=== PATIENT | male | born 1970 | race Caucasian/White ===

== ENCOUNTER 2017-08-21 09:03 | Emergency (ER) | payer MEDICAID, SELFPAY ==
[2017-08-21 09:04] VITALS: BP 130/75; PULSE 73; RESP 15; TEMP 36.6; O2SAT 100; BMI 17.9
--- NOTE | 2017-08-21 09:21 | RAD_ITS ---
STUDY: X-RAY - LUMBAR SPINE REASON FOR EXAM: Male, 46 years old. back pain NKI. TECHNIQUE: 3 view(s) of the lumbar spine were obtained. COMPARISON: None FINDINGS: Normal lumbar lordosis. There is no substantial scoliosis. There is a normal alignment of the vertebrae. There is minimal multilevel endplate spondylosis of the lumbar vertebrae. Normal disc space heights. The soft tissue structures are unremarkable. RAD/Lumbar Spine 2 or 3 Views IMPRESSION: No acute fracture or dislocation Electronically Signed: Dia Lujan MD at 9:57 EDT Tel , Service support ,
--- NOTE | 2017-08-21 09:28 | ED.VISSUMM ---
- ER Visit Summary Date of Service: 08/21/17 Chief Complaint: [Back pain] History of Present Illness: The patient is a 46 M [who presents the emergency department with low back pain. He feels like he cannot stand up straight. He has constant numbness and tingling in his upper extremities and feet that has been going on for a year or longer but nothing new. Urination and bowel movements have been normal. He is able to ambulate but it is painful and he cannot stand up straight he denies any weakness. No fevers. No new injuries. Is been gradual over the last 3 weeks. He he is on Plaquenil and Mobic for rheumatoid arthritis and sees a outreach clinician. He follows with Dr. Diaz and Dr.I elder Physical Examination: [] WN WD NAD thin PERRL EOMI MMM NECK supple and nontender, no masses RRR no murmur rub or gallop, no peripheral edema, symmetric radial pulses CTAB no respiratory distress ABDOMEN is soft and nontender, normal bowel sounds, no distension, no rebound or guarding Patient has mild tenderness of paper palpation at L5-S1 in the midline some mild tenderness over the right SI joint. He has 5 out of 5 strength with EHL 4 out of 5 strength with dorsiflexion and plantar flexion bilaterally 5 out of 5 strength with knee extension and hip flexion. There is no sensory deficits. He has 1+ symmetric DP pulses and 1+ symmetric patellar reflexes bilaterally. There is no skin changes distally. SKIN is warm and dry no rashes Alert and Oriented x3, CN II-XII in tact, patient walks slightly bent forward No lymphadenopathy Test Results: [] Emergency Department Course and Treatment: [He was given morphine and Flexeril in the emergency department. X-rays of the lumbar spine were obtained. X-ray show mild arthritis but no other acute process. I am concerned about canal stenosis given the patient's history. I do not think he needs an emergent MRI at this time however I did precaution him about follow-up with either his outreach clinician or primary doctor for further outpatient testing. I will add Medrol to his Plaquenil as well as Flexeril and pork Percocet. Oarrs report was reviewed. Careful instructions for which she should return to the emergency department.] Treatment Plan: [] Disposition: [Discharge] Impression: [Lumbar back pain] This note was generated with Dragon dictation software. It may contain incorrect words, spelling, and punctuation that were not noted in review of the chart prior to signing ED Disposition - Plan for ED Patient: Chief Complaint: Back Referrals: Care Physician,No Primary [Primary Care Provider] -
[2017-08-21] MEDS: morphine 8 MG/ML Syringe 6 MG SC (09:30)
--- NOTE | 2017-08-21 09:31 | ED.DCSUM_ITS ---
- ER Visit Summary Date of Service: 08/21/17 Chief Complaint: [Back pain] History of Present Illness: The patient is a 46 M [who presents the emergency department with low back pain. He feels like he cannot stand up straight. He has constant numbness and tingling in his upper extremities and feet that has been going on for a year or longer but nothing new. Urination and bowel movements have been normal. He is able to ambulate but it is painful and he cannot stand up straight he denies any weakness. No fevers. No new injuries. Is been gradual over the last 3 weeks. 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 He follows with Dr. Diaz and Dr.I elder Physical Examination: [] WN WD NAD thin PERRL EOMI MMM NECK supple and nontender, no masses RRR no murmur rub or gallop, no peripheral edema, symmetric radial pulses CTAB no respiratory distress ABDOMEN is soft and nontender, normal bowel sounds, no distension, no rebound or guarding Patient has mild tenderness of paper palpation at L5-S1 in the midline some mild tenderness over the right SI joint. He has 5 out of 5 strength with EHL 4 out of 5 strength with dorsiflexion and plantar flexion bilaterally 5 out of 5 strength with knee extension and hip flexion. There is no sensory deficits. He has 1+ symmetric DP pulses and 1+ symmetric patellar reflexes bilaterally. There is no skin changes distally. SKIN is warm and dry no rashes Alert and Oriented x3, CN II-XII in tact, patient walks slightly bent forward No lymphadenopathy Test Results: [] Emergency Department Course and Treatment: [He was given morphine and Flexeril in the emergency department. X-rays of the lumbar spine were obtained. X-ray show mild arthritis but no other acute process. I am concerned about canal stenosis given the patient's history. I do not think he needs an emergent MRI at this time however I did precaution him about follow-up with either his clock repair technician or primary doctor for further outpatient testing. I will add Medrol to his Plaquenil as well as Flexeril and pork Percocet. Oarrs report was reviewed. Careful instructions for which she should return to the emergency department.] Treatment Plan: [] Disposition: [Discharge] Impression: [Lumbar back pain] This note was generated with Dragon dictation software. It may contain incorrect words, spelling, and punctuation that were not noted in review of the chart prior to signing ED Disposition - Plan for ED Patient: Chief Complaint: Back Referrals: Care Physician,No Primary [Primary Care Provider] -
--- NOTE | 2017-08-21 10:33 | ED.DEP ---
ED Disposition - Plan for ED Patient: Chief Complaint: Back Instructions: ED Neck Back Pain General Prescriptions: Oxycodone HCl/Acetaminophen [Percocet 5/325] 1 tablet PO Q6H PRN PRN 3 Days #12 tablet PRN Reason: Pain MethylPREDNISolone DosePak [Medrol DosePak] 4 mg PO UD #1 box Cyclobenzaprine [Flexeril] 10 mg PO TID PRN 3 Days #14 tablet PRN Reason: Muscle Spasm Referrals: Albert Diaz NP-C [NON-STAFF] - 08/23/17
== END 2017-08-21 10:54 | disposition home or self-care (01) ==
PROVIDERS: Emergency Provider Emergency Medicine
DX: M54.9 Dorsalgia, unspecified (principal); M54.5 Low back pain; M06.9 Rheumatoid arthritis, unspecified; Z79.1 Long term (current) use of non-steroidal anti-inflammatories (NSAID)
CPT/HCPCS: 72100; 96372; 99282

== ENCOUNTER 2017-12-28 07:49 | Emergency (ER) | payer SELFPAY ==
[2017-12-28 07:50] VITALS: BP 116/74; PULSE 89; RESP 16; TEMP 36.6; O2SAT 99; BMI 18.2
--- NOTE | 2017-12-28 08:07 | CT_ITS ---
STUDY: CT ABDOMEN AND PELVIS WITH CONTRAST REASON FOR EXAM: Male, 47 years old. PELVIC PAIN /N/V SINCE Saturday12/26/17. Hx of diverticulitis. No prev surgeries. RADIATION DOSAGE (If Supplied By Facility): CTDIvol = ( 11.52 ) mGy, DLP = ( 307.82 ) mGycm TECHNIQUE: Transaxial images were obtained from the dome of the diaphragm to the symphysis pubis without oral contrast. 100ml ml of Isovue 300 contrast was administered. Sagittal and coronal images were reconstructed. Individualized dose optimization techniques were used for this CT. COMPARISON: None. FINDINGS: The visualized lung bases are unremarkable. The visualized portions of the heart are within normal limits. Normal liver. Normal gallbladder and extrahepatic biliary system. Normal spleen. Normal pancreas. Normal bilateral adrenal glands. Normal right kidney. Normal left kidney. Normal visualized stomach. Normal small intestine. There is diffuse circumferential thickening of the cecum (axial image #88 series 2 there is subtle pericolonic infiltration. There are no fluid collections are perforation. There is non-visualization of the appendix. There is diffuse atherosclerotic calcification of the abdominal aorta, without a demonstrated aneurysm. Normal inferior vena cava. Normal retroperitoneum. Normal urinary bladder. Normal abdominal wall. Normal osseous structures. CT/Abdomen/Pelvis WITH Contrast IMPRESSION: Thickening of the sigmoid. Differential considerations are infectious, inflammatory and neoplastic disease. Electronically Signed: Dia Lujan MD at 10:34 EDT Tel , Service support ,
[2017-12-28] MEDS: 0.9% Normal Saline 1,000 ML 1000 ML IV (08:11)
--- NOTE | 2017-12-28 08:11 | ED.DCSUM_ITS ---
- ER Visit Summary Date of Service: 12/28/17 Chief Complaint: Abdominal pain History of Present Illness: The patient is a 47 M presenting with left lower quadrant abdominal pain ?3 days. Patient has associated nausea and vomiting. He denies diarrhea or constipation. Denies blood in his stool or emesis. Denies urinary complaints. He has had diverticulitis in the past and states this feels similar. Denies other complaints. Physical Examination: Vitals are stable. Patient is afebrile. Alert no acute distress. HEENT exam is unremarkable. Neck is supple. Lungs are clear and equal bilaterally. Heart is regular rate and rhythm. Abdomen is soft left lower quadrant and suprapubic tenderness, no rebound or guarding Extremities are unremarkable. Skin is warm and dry. Remainder of exam is unremarkable. Emergency Department Course and Treatment: Patient was given IV fluids, morphine , Zofran IV. CBC shows a white count of 14.6. Chemistries show glucose 169. Liver lipase are normal. CT abdomen pelvis with IV and oral contrast was obtained and shows thickening of the cecum. Discussed with the radiologist who feels this is likely diverticulitis. He is given Augmentin and a prescription for Augmentin. He is advised to follow-up with his primary care physician. Advised return to the ED for worsening complaints. Disposition: Discharge home Impression: Abdominal pain This note was generated with [employer] dictation software. It may contain incorrect words, spelling, and punctuation that were not noted in review of the chart prior to signing ED Disposition - Plan for ED Patient: Chief Complaint: Abd Pain Referrals: Albert James MD [Primary Care Provider] -
[2017-12-28] MEDS: Ondansetron 4 MG/2 ML Vial IV (08:15)
[2017-12-28] MEDS: Morphine 4 MG/ML Syringe IV (08:15)
[2017-12-28 08:30] LABS: Absolute Lymphocyte Count 1.25 X10^3/ul (0.83-4.51); Absolute Neutrophil Count 11.6 X10^3/uL (2.0-7.7); Basophil# 0.01 X10^3/uL; Basophil% 0.1 % (0-1); Eosinophil# 0.08 X10^3/uL; Eosinophils% 0.5 % (0-5); Hematocrit 43.2 % (40-54); Hemoglobin 14.4 g/dl (13.0-16.5); Lymphocyte # 1.25 X10^3/ul (4.0); Lymphocyte % 8.6 % (19-41); Mean Corp Hgb Conc 33.3 g/gl (32-36); Mean Corpuscular Hgb 31.4 pg (27.0-32.0); Mean Corpuscular Volume 94.3 fL (80-94); Mean Platelet Vol. 9.7 fl (6.2-12.0); Monocyte# 1.65 X10^3/uL; Monocyte% 11.3 % (0-10); Neutrophil # 11.56 X10^3/uL (2.7-7.7); Neutrophil % 79.3 % (47-70); Platelet Count 166 K/mm3 (150-450); RBC Distribution Width CV 14.7 % (11.6-14.6); RBC Distribution Width SD 50.7 fl (35.1-43.9); Red Blood Count 4.58 M/mm3 (4.6-6.2); White Blood Count 14.6 K/mm3 (4.4-11.0)
[2017-12-28 08:35] LABS: Differential Indicated SCAN CRITERIA MET; POSITIVE COUNT NO; POSITIVE DIFFERENTIAL YES; POSITIVE MORPHOLOGY NO
[2017-12-28 08:40] LABS: ALB/GLOB Ratio 1.1 RATIO (0.9-2.4); AST(SGOT) 12 U/L (15-37); Alanine Aminotransfer ALT/SGPT 25 U/L (16-61); Albumin, Serum 3.7 g/dL (3.2-5.0); Alkaline Phosphatase 76 U/L (45-117); Anion Gap 8 (5-15); BUN 18 mg/dL (7-18); BUN/Creat Ratio 18.9 RATIO (10-20); Calcium,Total 9.1 mg/dL (8.5-10.1); Chloride 101 mmol/L (98-107); Creatinine, Serum 0.95 mg/dL (0.70-1.30); EST Glomerular Filtration Rate 90 mL/min (>60); Est Glom Filt Rate - Afr Amer 108 mL/min (>60); Estimated Creatinine Clearance 74.64 ml/min; Globulin 3.3 g/dL (2.2-4.2); Glucose 169 mg/dL (74-106); Lipase 89 U/L (73-393); Potassium 4.3 mmol/L (3.5-5.1); Sodium Level 138 mmol/L (136-145)
[2017-12-28 09:39] LABS: Bacteria 0 SEEN /hpf (None Seen); Mucous, Urine 0 SEEN /hpf (<or=2+); Red Blood Cells-Urine 0 SEEN /hpf (0-5); Squamous Epithelial Cells - UA 0 SEEN /hpf (0-5); White Blood Cells 0 SEEN /hpf (0-5)
[2017-12-28 09:43] LABS: Color, Urine Yellow (Yellow); Glucose, Dipstick 50 mg/dl (Normal); Ketone-Dipstick Negative (Negative); Leukocyte Esterase-Dipstick Negative /ul (Negative); Nitrite-Dipstick Negative (Negative); Occult Blood-Urine Negative /ul (Negative); Protein-Dipstick Negative (Negative); Urine Bilirubin Dipstick Negative (Negative); Urine Clarity Clear (Clear); Urine Urobilinogen Normal (Normal); Urine pH 6.5 (5.0 - 8.0)
[2017-12-28] MEDS: Amox/Clavulanate 875 MG Tablet PO (11:44)
[2017-12-28 11:46] VITALS: BP 133/68; PULSE 72; RESP 15; O2SAT 96
== END 2017-12-28 11:48 | disposition home or self-care (01) ==
PROVIDERS: Emergency Provider Emergency Medicine
DX: R10.32 Left lower quadrant pain (principal); R10.2 Pelvic and perineal pain; M19.90 Unspecified osteoarthritis, unspecified site; Z72.0 Tobacco use; Z79.899 Other long term (current) drug therapy
CPT/HCPCS: 74177; 80053; 81001; 83690; 85025; 96361; 96374; 96375; 99284; J7030; Q9967; J2405

== ENCOUNTER 2018-09-22 17:33 | Emergency (ER) | payer SELFPAY ==
[2018-09-22 17:33] VITALS: BP 102/69; PULSE 75; RESP 17; TEMP 36.4; O2SAT 100; BMI 18.6
--- NOTE | 2018-09-22 18:42 | ED.VIS.EYE ---
History of Present Illness Chief Complaint: Eye Problem Narrative: Patient presenting secondary to foreign body in the left eye. Patient reports that yesterday he was cutting the muffler off of his car. He reports that when he cut it a large amount of rust and dust and material went into the air, and he felt as if he got something in his left eye. He reports a continuous left eye foreign body sensation. No exacerbating relieving factors. No visual changes. View of systems otherwise negative. Past Medical History - Allergies and Home Meds Allergies/Adverse Reactions: Allergies No Known Allergies Allergy (Verified 09/22/18 17:33) Primary Care Physician: Dionte Pritchett MD [STAFF PHYSICIAN] - As soon as possible Smoking Status: Current every day smoker Review of Systems All systems negative except as indicated Eyes: Reports: - - Foreign body sensation left eye Physical Exam Visual Acuity: Uncorrected Eyelid: - - Examination of the patient's left eye shows injection of the conjunctive a. There is no evidence of foreign body on eversion of the eyelids. Slit-lamp exam demonstrates a metallic foreign body at approximately the 2:00 portion of the patient's eye with associated rust ring. Fluorescein staining shows no evidence of Eliazar sign. Anterior chambers deep and quiet. Vital Signs/Narrative: Vital Signs Temp Pulse Resp BP Pulse Ox 09/22/18 17:33 97.5 F L 75 17 102/69 100 Inital Vital Signs reviewed: Yes General: Well nourished, Well developed Head: Normocephalic, Atraumatic Cardiovascular: Regular rate Respiratory: No distress Diagnostic/Tx/Re-eval - Medical Decision Making Patient presented secondary to a corneal foreign body. No evidence of globe rupture. Much of the foreign bodies I could remove with the eye bur was performed as noted in the procedure note. There is still residual rust ring, patient was given a referral to ophthalmology. Patient will be discharged with bacitracin ophthalmic. Procedures Procedure(s): Patient's eye was anesthetized with tetracaine. Patient was placed in front of the slit-lamp. Rotary eye bur was used to remove the patient's corneal foreign body. Patient tolerated this well. There is still residual rust ring. Disposition: Home ED Disposition - Plan for ED Patient: Disposition: Home or Assisted Living Diagnosis: Corneal foreign body, Corneal rust ring of left eye Instructions: ED Foreign Body Cornea W Rust Ring Referrals: Dionte Pritchett MD [STAFF PHYSICIAN] - As soon as possible
[2018-09-22 18:58] VITALS: BP 103/72; PULSE 63; RESP 17; O2SAT 100
== END 2018-09-22 19:02 | disposition home or self-care (01) ==
PROVIDERS: Emergency Provider Emergency Medicine
DX: T15.02XA Foreign body in cornea, left eye, initial encounter (principal); F17.200 Nicotine dependence, unspecified, uncomplicated; X58.XXXA Exposure to other specified factors, initial encounter; Y93.9 Activity, unspecified; Y92.009 Unspecified place in unspecified non-institutional (private) residence as the place of occurrence of the external cause; Y99.8 Other external cause status
CPT/HCPCS: 65222; 99283

== ENCOUNTER 2021-12-19 08:01 | Emergency (ER) | payer MEDICAID, SELFPAY ==
[2021-12-19 08:02] VITALS: BP 113/78; PULSE 60; RESP 14; TEMP 36.8; O2SAT 100; BMI 18.4
--- NOTE | 2021-12-19 08:11 | CT_ITS ---
STUDY: CT ABDOMEN AND PELVIS WITHOUT CONTRAST REASON FOR EXAM: Male, 51 years old. Back pain and abdominal pain. RADIATION DOSAGE (If Supplied By Facility): CTDIvol = ( 6.04 ) mGy, DLP = ( 797.39 ) mGycm TECHNIQUE: Transaxial images were obtained from the dome of the diaphragm to the symphysis pubis without oral contrast, and without intravenous contrast. Sagittal and coronal images were reconstructed. Individualized dose optimization techniques were used for this CT. COMPARISON: Comparison is made with prior examination dated 12/28/2017. FINDINGS: The visualized lung bases are unremarkable. The visualized portions of the heart are within normal limits. There is hepatomegaly with diffuse hepatic enlargement. Normal gallbladder and extrahepatic biliary system. Normal spleen. Normal pancreas. Normal bilateral adrenal glands. Normal right kidney. Normal left kidney. Normal visualized stomach. Normal small intestine. There are multiple colonic diverticula consistent with diverticulosis. The appendix is visualized and appears normal. There is scattered atherosclerotic calcification of the abdominal aorta, without a demonstrated aneurysm. Normal inferior vena cava. Normal retroperitoneum. Normal urinary bladder. There are prostatic calcifications. Normal abdominal wall. Normal osseous structures. CT/Abdomen/Pelvis without Cont IMPRESSION: Sigmoid diverticulosis. Central prostatic calcifications. Mild hepatomegaly. Electronically Signed: Azam James MD at 8:57 EDT ,
--- NOTE | 2021-12-19 08:11 | CT_ITS ---
STUDY: CT LUMBAR SPINE WITHOUT CONTRAST REASON FOR EXAM: Male, 51 years old. Two-month history of low back pain. No known injury. RADIATION DOSAGE (If Supplied By Facility): CTDIvol = ( 13.82 ) mGy, DLP = ( 797.39 ) mGycm TECHNIQUE: The patient was scanned in a multi detector CT scanner. High resolution transaxial imaging was performed. Images were obtained from L1 to S1 vertebral body. Sagittal and coronal images were reconstructed. Individualized dose optimization techniques were used for this CT. COMPARISON: None FINDINGS: Normal lumbar lordosis. There is no substantial scoliosis. Normal vertebrae of the lumbar spine. L1-2: Normal endplates. Normal disc height and morphology. Normal bilateral facet joints. Normal central canal and bilateral lateral recesses. Normal bilateral intervertebral neural foramina. L2-3: Mild degree of diffuse posterior disc bulge. No significant stenosis is seen. L3-4: Normal endplates. Normal disc height and morphology. Normal bilateral facet joints. Normal central canal and bilateral lateral recesses. Normal bilateral intervertebral neural foramina. L4-5: Normal endplates. Normal disc height and morphology. Normal bilateral facet joints. Normal central canal and bilateral lateral recesses. Normal bilateral intervertebral neural foramina. L5-S1: Normal endplates. Normal disc height and morphology. Normal bilateral facet joints. Normal central canal and bilateral lateral recesses. Normal bilateral intervertebral neural foramina. Atherosclerotic plaque formation of the abdominal aorta. CT/Spine Lumbar without Contrast IMPRESSION: Mild degree of diffuse posterior disc bulge at the L2-L3 level. No significant stenosis is seen. Electronically Signed: Azam James MD at 9:00 EDT ,
--- NOTE | 2021-12-19 08:13 | EDS_ITS ---
HPI History of Present Illness Chief Complaint: Back Narrative Narrative: Patient is complaining of back pain for the past few months it is getting worse, the pain is so bad that he is not eating much, apparently he has lost 10 pounds in the past few weeks. He has no abdominal pain or suprapubic pain. The pain does not radiate into his legs, he has no urinary retention symptoms or bowel or bladder compromise. No saddle anesthesia. No fevers or chills. No trauma to the low back. He is a smoker, however he does not take any other medications or have medical problems. PFSH PFS Home Medications cyclobenzaprine 10 mg tablet 10 mg PO TID #10 tabs 12/19/21 [Rx Last Taken Unknown] Allergy/AdvReac Type Severity Reaction Status Date / Time No Known Allergies Allergy Verified 12/19/21 08:02 Social History Smoking Status: Current every day smoker tobacco type: cigarettes ROS ROS ED ROS Narrative Past medical history: Denies any Medications: None Social history: Smoker Review of systems: All systems negative except as indicated General: No fever or chills. Eyes: No visual changes ENT: No upper airway congestion, normal voice Neck: No neck pain Cardiovascular: No chest pain Respiratory: No shortness of breath or cough Gastrointestinal: No abdominal pain, nausea vomiting or diarrhea. Decreased appetite Genitourinary: No dysuria, no incontinence or urinary retention symptoms Musculoskeletal: Denies myalgias or extremity pain Back: Back pain as in HPI Skin: No rash Neurological: No memory loss, confusion or any focal weakness Psych: No recent behavioral changes Hematologic: No easy bleeding or easy bruising EXAM Physical Exam Narrative Exam Narrative: Vitals reviewed General: Patient appears in some discomfort HEENT: Moist mucous membranes Neck: Nontender Cardiovascular normal heart rate Respiratory: No respiratory difficulty speaking in full sentences Abdomen: Soft and nontender, there is no suprapubic mass or pain Back: There is some tenderness over the lumbar region, pain is spinal and paraspinal both. Extremities: Moves all extremities without joint pain or signs of trauma Neurological: There is normal plantar flexion and dorsiflexion of both feet and great toes. Patellar and Achilles reflexes are normal. Normal strength and sensation. Negative straight leg test. Skin: No rash Psychiatric: Slightly anxious. Const Vital Signs: 12/19/21 08:02 Temperature 98.2 F Temperature Source Temporal Pulse Rate 60 Respiratory Rate 14 Blood Pressure 113/78 Blood Pressure Mean 89 Pulse Ox 100 Oxygen Delivery Method Room Air MDM MDM MDM Narrative Medical decision making narrative: Patient is found to have prostate calcifications on his CT, I am unsure about the etiology of this however I am worried since he had quite a bit of back pain and weight loss recently, I will refer him to urology for prostate cancer screening. The lumbar CT does show disc herniation, this could be causing most of his pain. I will refer to access specialist, he likely needs physical therapy. I will also give him muscle relaxants. Lab Data Labs: Laboratory Results - last 24 hr 12/19/21 12/19/21 08:24 08:24 WBC 11.4 H RBC 4.83 Hgb 15.1 Hct 46.1 MCV 95.4 H MCH 31.3 MCHC 32.8 RDW Std Deviation 51.5 H RDW Coeff of Omar 14.6 Plt Count 221 MPV 9.1 Immature Gran % (Auto) 0.400 Neut % (Auto) 71.0 H Lymph % (Auto) 16.9 L [place] % (Auto) 8.4 Eos % (Auto) 2.9 Baso % (Auto) 0.4 Absolute Neuts (auto) 8.1 H Absolute Lymphs (auto) 1.92 Nucleated RBC % 0 Sodium 137 Potassium 4.1 Chloride 103 Carbon Dioxide 27.0 Anion Gap 7 BUN 13 Creatinine 0.98 Estim Creat Clear Calc 69.79 Est GFR (MDRD) Af Amer 102 Est GFR (MDRD) Non-Af 85 BUN/Creatinine Ratio 13.2 Glucose 97 Calcium 9.1 Total Bilirubin 0.50 AST 18 ALT 24 Alkaline Phosphatase 93 Total Protein 7.3 Albumin 3.8 Globulin 3.5 Albumin/Globulin Ratio 1.1 TSH 1.45 Radiography Diagnostic Testing: Clinical Impression(s) from Imaging Studies Abdomen/Pelvis CT 12/19/21 08:11 IMPRESSION: Sigmoid diverticulosis. Central prostatic calcifications. Mild hepatomegaly. Electronically Signed: Azam James MD at 8:57 EDT , Lumbar Spine CT 12/19/21 08:11 IMPRESSION: Mild degree of diffuse posterior disc bulge at the L2-L3 level. No significant stenosis is seen. Electronically Signed: Azam James MD at 9:00 EDT , Discharge Plan Triage Chief Complaint: Back ED Provider: Danis Cosme Dx/Rx/DC Orders Clinical Impression: Back pain, Disc herniation, Abnormal weight loss Instructions: Anatomy of a Normal Spine, Back Exercises: Abdominal Lift, Back Exercises: Back Release, Back Exercises: Knee Lift, Back Exercises: Lower Back Stretch Prescriptions: New cyclobenzaprine 10 mg tablet 10 mg PO TID Qty: 10 0RF Primary Care Provider: Care Physician,No Primary Referrals: Dez Harrell MD [Med Staff - Active Staff] - 3-5 Days (for prostate screening ) Deacon Ramos DO [Med Staff - Active Staff] - 3-5 Days Care Physician,No Primary [Primary Care Provider] - Activity Restrictions/Additional Instructions: Follow-up with urology, there are calcifications on your prostate we want to make sure you do not have prostate cancer. Otherwise follow-up with spine for your back pain. Disposition Disposition: Home, Self Care
--- NOTE | 2021-12-19 08:20 | ED.RN ---
PT REPORTS SMOKING MARIJUANA FOR PAIN AT HOME AND THAT HE HAS HAD 10 POUND WEIGHT LOSS OVER THE LAST 2 MONTHS,
[2021-12-19 08:30] LABS: Absolute Lymphocyte Count 1.92 X10^3/uL (0.83-4.51); Absolute Neutrophil Count 8.1 X10^3/uL (2.0-7.7); Basophil# 0.05 X10^3/uL; Basophil% 0.4 % (0-1); Eosinophil# 0.33 X10^3/uL; Eosinophils% 2.9 % (0-5); Hematocrit 46.1 % (40-54); Hemoglobin 15.1 g/dL (13.0-16.5); Lymphocyte # 1.92 X10^3/ul (0.83-4.51); Lymphocyte % 16.9 % (19-41); Mean Corp Hgb Conc 32.8 g/dL (32-36); Mean Corpuscular Hgb 31.3 pg (27.0-32.0); Mean Corpuscular Volume 95.4 fL (80-94); Mean Platelet Vol. 9.1 fl (6.2-12.0); Monocyte# 0.96 X10^3/uL; Monocyte% 8.4 % (0-10); NRBC Flagged by Analyzer 0 % (0-5); Neutrophil # 8.08 X10^3/uL (2.7-7.7); Platelet Count 221 K/mm3 (150-450); RBC Distribution Width CV 14.6 % (11.6-14.6); RBC Distribution Width SD 51.5 fl (35.1-43.9); Red Blood Count 4.83 M/mm3 (4.6-6.2); White Blood Count 11.4 K/mm3 (4.4-11.0)
[2021-12-19 08:56] LABS: ALB/GLOB Ratio 1.1 RATIO (0.9-2.4); AST(SGOT) 18 U/L (15-37); Alanine Aminotransfer ALT/SGPT 24 U/L (16-61); Albumin, Serum 3.8 g/dL (3.2-5.0); Alkaline Phosphatase 93 U/L (45-117); Anion Gap 7 (5-15); BUN 13 mg/dL (7-18); BUN/Creat Ratio 13.2 RATIO (10-20); Calcium,Total 9.1 mg/dL (8.5-10.1); Chloride 103 mmol/L (98-107); Creatinine, Serum 0.98 mg/dL (0.70-1.30); EST Glomerular Filtration Rate 85 mL/min (>60); Est Glom Filt Rate - Afr Amer 102 mL/min (>60); Estimated Creatinine Clearance 69.79 ml/min; Globulin 3.5 g/dL (2.2-4.2); Glucose 97 mg/dL (74-106); Potassium 4.1 mmol/L (3.5-5.1); Protein, Total 7.3 g/dL (6.4-8.2); Sodium Level 137 mmol/L (136-145); Thyroid Stim Hormone (TSH) 1.45 uIU/mL (0.358-3.74)
[2021-12-19] MEDS: oxyCODONE 5 MG Tablet PO (09:23)
[2021-12-19 09:26] VITALS: BP 116/72; RESP 16
== END 2021-12-19 09:27 | disposition home or self-care (01) ==
PROVIDERS: Emergency Provider Emergency Medicine; Visit Provider Emergency Medicine
DX: M51.26 Other intervertebral disc displacement, lumbar region (principal); R63.4 Abnormal weight loss; F17.210 Nicotine dependence, cigarettes, uncomplicated
CPT/HCPCS: 72131; 74176; 80053; 84443; 85025; 99284; A4216

== ENCOUNTER 2023-01-07 08:06 | Emergency (ER) | payer MEDICAID, SELFPAY ==
[2023-01-07 08:07] VITALS: BP 131/78; PULSE 66; RESP 16; TEMP 36.6; O2SAT 96; BMI 18.6
--- NOTE | 2023-01-07 09:07 | RAD_ITS ---
STUDY: X-RAY - THORACIC SPINE REASON FOR EXAM: Male, 52 years old. Injury/Pain -- -- LOWER RT SIDE PAIN, PT THINKS MAY HAVE INJURY BUT UNSURE TECHNIQUE: 3 view(s) of the thoracic spine were obtained. COMPARISON: None. FINDINGS: Normal kyphosis of the thoracic spine. There is no substantial scoliosis. There is demineralization of the thoracic spine. Normal disc space heights. The soft tissue structures are unremarkable. RAD/Thoracic Spine 3 Views IMPRESSION: No acute abnormality is seen. Electronically Signed: Azam James MD at 9:54 EDT ,
--- NOTE | 2023-01-07 09:08 | EDS_ITS ---
HPI History of Present Illness Chief Complaint: Back Informant: patient Narrative Narrative: D2-year-old male presenting with worsening lower left back pain. 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 He states it lasted about 5 to 10 minutes. It was quite painful at that time. He notes he felt often slightly out of it/fevers the rest of the day. 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 He denies any radiation of the pain. He denies any weakness or numbness of his legs, bowel or bladder symptoms. Not take anything for symptoms prior to arrival. Patient was seen about a year ago for similar back pain. At that time he had a CT of his lumbar spine which showed a bulge. He was prescribed Flexeril. He thinks he took it probably got better. He never followed up with spine or urology. He been referred to urology because of central calcifications of unknown etiology. At that time he also reported he is losing weight. When asked about this patient states he continues to have a pretty poor appetite. He has ongoing epigastric discomfort but denies any current black or blood in his stool. He notes that he tried to eat soda and to windy sandwiches and can only eat about half a sandwich before his epigastric stomach started bothering him. He also notes that he gets frequent thoracic back pain between his shoulder blades. He continues to smoke. He does not have a primary care doctor. He states his stomach always feels kind of tight. Denies any rash or skin changes. Denies any difficulty breathing. No other complaints at this time. [facility] Home Medications acetaminophen 500 mg tablet (Pain Relief (acetaminophen)) 500 mg PO Q6H PRN pain #30 tabs 01/07/23 [Rx Last Taken Unknown] cyclobenzaprine 10 mg tablet 10 mg PO TID PRN muscle spasm #14 tabs 01/07/23 [Rx Last Taken Unknown] famotidine 20 mg tablet (Pepcid) 20 mg PO DAILY #20 tabs 01/07/23 [Rx Last Taken Unknown] Allergy/AdvReac Type Severity Reaction Status Date / Time No Known Allergies Allergy Verified 01/07/23 08:10 Surgical History H/O hand surgery History of surgery on lower extremity Social History Smoking Status: Current every day smoker tobacco type: cigarettes ROS ROS ED Constitutional Constitutional ED: Reports sweats; Denies chills or fever(s) Cardiovascular Cardiovascular: Denies chest pain or palpitations Respiratory/Chest Respiratory/Chest: Denies dyspnea Gastrointestinal Gastrointestinal: Reports abdominal pain; Denies constipation, diarrhea, melena, nausea or vomiting Musculoskeletal Musculoskeletal: Reports back pain and neck pain; Denies arthralgias or myalgias Integumentary Denies rash Neurologic Neurologic: Reports headache(s); Denies paresthesias or weakness Psychiatric Psychiatric: Denies anxiety Hematologic/Lymphatic Hematologic/Lymphatic: Denies easy bleeding or easy bruising EXAM Physical Exam Const Vital Signs: 01/07/23 08:07 01/07/23 10:38 Temperature 97.9 F Temperature Source Temporal Pulse Rate 66 68 Respiratory Rate 16 16 Blood Pressure 131/78 H 110/78 Blood Pressure Mean 95 Pulse Ox 96 97 Oxygen Delivery Method Room Air Positive well nourished and well developed Constitutional Narrative: Thin General Appearance ED: well developed and NAD; Negative for pallor HEENT Reports moist mucous membranes Eyes PERRL and EOMs intact bilaterally General Eye ED: Negative for pale conjunctiva Neck supple and no JVD Neck Narrative: No midline tenderness, normal range of motion Chest Wall Chest Narrative: No chest wall tenderness Resp normal respiratory effort and clear to auscultation bilaterally Cardio regular rate, regular rhythm and no murmurs GI normal to inspection, nondistended, normoactive bowel sounds, soft to palpation, non-distended and no masses GI Narrative: Very mild tenderness palpation epigastric region Back/Spine normal to inspection and no thoracic nor lumbar tenderness Back/Spine Narrative: Points to his lumbar paraspinal region on the left as his area of pain however its not highly reproducible with movements. No midline spinal tenderness. Negative straight leg test bilaterally. Extremity normal to inspection General Extremety ED: Negative for edema or tenderness General Extremity: Negative for edema Neuro oriented x3 and no sensory deficits noted Sensorium / Orientation: alert Motor Exam: strength 5/5 throughout Psych mental status grossly normal Skin no rashes or lesions noted and no wounds General Skin Exam: Negative for pallor MDM MDM MDM Narrative Medical decision making narrative: Is evaluated for left-sided low back pain. Is worse with movement. It does not have any midline tenderness or red flag symptoms for cauda equina syndrome. I do not think he requires imaging for this. I am a bit more concerned because he tells me for the past year he has had ongoing eating issues, continued weight loss and does get a lot of pain between his shoulder blades. He is a smoker. He never followed up last year for his prostatic calcifications. We will obtain a thoracic sine x-ray well as 2 view chest to look for any bony abnormalities or masses of the lungs. Patient counseled that with his ongoing symptoms he really needs to see a primary care doctor. Differential does include a symptom of undiagnosed cancer especially with his weight loss and continued smoking. Right now I do not think he requires emergent work-up as he has normal vital signs and a benign exam. Is given dose of Tylenol in the ER. Thoracic and chest x-ray interpreted by myself as well as radiology does not show any acute process. Does have hyperinflation. He has been told this in the past when I discussed the findings with him. He is willing to try a course of Pepcid for his indigestion/epigastric symptoms. Counseled the importance of close outpatient follow-up. I did discuss that he should avoid NSAIDs given his epigastric discomfort. Counseled on the importance of outpatient follow-up for his issues. At this time I do think his back pain is muscle skeletal. Will be given new prescription for Flexeril. Radiography Diagnostic Testing: Clinical Impression(s) from Imaging Studies Thoracic Spine X-Ray 01/07/23 09:07 IMPRESSION: No acute abnormality is seen. Electronically Signed: Azam James MD at 9:54 EDT , Chest X-Ray 01/07/23 09:15 IMPRESSION: Hyperinflation. The lungs are clear. Electronically Signed: Azam James MD at 9:55 EDT , Discharge Plan Triage Chief Complaint: Back ED Provider: Charla Ye Dx/Rx/DC Orders Clinical Impression: Indigestion, Acute left-sided low back pain Instructions: ED Back Care Tips, ED Back Sprain/Strain Prescriptions: New famotidine [Pepcid] 20 mg tablet 20 mg PO DAILY Qty: 20 0RF acetaminophen [Pain Relief (acetaminophen)] 500 mg tablet 500 mg PO Q6H PRN (Reason: pain) Qty: 30 0RF Changed cyclobenzaprine 10 mg tablet 10 mg PO TID PRN (Reason: muscle spasm) Qty: 14 0RF Primary Care Provider: Care Physician,No Primary Referrals: Khadra Trejo MD [Med Staff - [employer]] - As soon as possible Meena Mendes [Non-Staff] - As soon as possible Care Physician,No Primary [Primary Care Provider] - Activity Restrictions/Additional Instructions: Your x-rays did not show any acute abnormalities, fractures or masses. We will treat you for muscle strain in your back. Will do this with Tylenol and muscle relaxer. Like to avoid anti-inflammatory such as ibuprofen or Aleve because of the stomach issues you have been having. Highly recommend he follow-up with a primary care doctor to address your ongoing stomach issues, weight loss and to establish care. The meantime we will also start short an antacid. You like it helpful you can continue to take it [id number] until you can follow-up with the primary care doctor. I Have given you information for 2 clinics. If you have a progression or worsening your symptoms please return to the emergency room. Disposition Disposition: Home, Self Care Discharge Date/Time: 01/07/23 10:43
--- NOTE | 2023-01-07 09:15 | RAD_ITS ---
STUDY: X-RAY CHEST REASON FOR EXAM: Male, 52 years old. Cough -- -- PT STATES COUGH FROM BEING A SMOKER TECHNIQUE: PA and lateral views of the chest. COMPARISON: Comparison is made with prior study dated September 19, 2015. FINDINGS: There is hyperinflation of the lungs consistent with chronic obstructive lung disease (COPD). There is no demonstrated pleural abnormality. Normal size heart. Normal mediastinum and no. Normal visualized pulmonary arteries. Normal visualized aortic arch and descending thoracic aorta. Normal visualized thoracic spine. Normal visualized ribs, clavicles, and shoulders. There is no demonstrated abnormality of the visualized soft tissue structures of the upper abdomen. RAD/Chest PA and Lateral IMPRESSION: Hyperinflation. The lungs are clear. Electronically Signed: Azam James MD at 9:55 EDT ,
[2023-01-07] MEDS: Acetaminophen 500 MG Tablet 1000 MG PO (09:24)
[2023-01-07 10:38] VITALS: BP 110/78; PULSE 68; RESP 16; O2SAT 97
== END 2023-01-07 10:43 | disposition home or self-care (01) ==
PROVIDERS: Emergency Provider Emergency Medicine; Visit Provider Emergency Medicine
DX: M54.50 Low back pain, unspecified (principal); K30 Functional dyspepsia; F17.210 Nicotine dependence, cigarettes, uncomplicated
CPT/HCPCS: 71046; 72072; 99282

== ENCOUNTER 2023-03-05 09:36 | Day surgery (SDC) | payer MEDICAID, SELFPAY ==
[2023-03-05] VITALS (7 sets, daily range): BP systolic 103–120; BP diastolic 74–81; PULSE 56–73; RESP 16–18; TEMP 36.2–36.4; O2SAT 100; BMI 18.2
[2023-03-05] MEDS: Lactated Ringers 1,000 ML 15 ML IV (10:01)
--- NOTE | 2023-03-05 10:28 | HP.PCM_ITS ---
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 Adam Brown MD) Abdominal pain Back pain Early satiety GERD (gastroesophageal reflux disease) History of colon polyps Marijuana use Smoking addiction Weight loss Surgical History (Updated 01/21/23 @ 15:04 by Sully Santiago) H/O hand surgery History of lung surgery History of shoulder surgery History of surgery on lower extremity Family History (Updated 01/21/23 @ 15:06 by Sully Santiago) Father Heart diseaseMother Cancer lung cancerGrandmother Breast cancerGrandfather Heart disease Social History (Updated 01/21/23 @ 15:06 by Sully Santiago) Smoking Status: Current every day smoker tobacco type: cigarettes alcohol intake: never substance use type: marijuana HPI HPI HPI: Patient is a 52-year-old male here because of early satiety and weight loss. Patient reports losing 30 pounds weight over the last 2 months. Patient says that he is only able to tolerate a bite or 2 of food and then he does not feel hungry and he feels nauseous and full. He says his last colonoscopy was about 5 years ago. ROS General General: Yes weight change and fatigue; No appetite, colon cancer, breast cancer or weakness Additional Details: Unintentional weight loss over past year HEENT HEENT: No difficulty swallowing, eye injury, eye surgery, swollen glands or hoarseness Endo Endocrine: No thyroid disease, diabetes mellitus, thyroid cancer, Hair loss, heat intolerance or cold intolerance Skin Skin: No rash or changing moles Breast Breast: No left breast lump, right breast lump, nipple discharge, breast pain, abnormal mammogram, abnormal US or breast enlargement Musc Musculoskeletal: Yes back problems, arthritis and rheumatoid arthritis; No gout or joint pain Cardio Cardiovascular: No murmur, pacemaker, heart disease, atrial fibrillation, high blood pressure, heart attack, heart stent, palpitations, shortness of breat with exertion or chest pain Psych Psychiatric: No depression, anxiety or hearing voices Resp Respiratory: No shortness of breath, Yes sleep apnea, No cough, No COPD, No asthma, No emphysema and No wheezing Gastro Gastrointestinal: Yes abdominal pain, Yes nausea or vomiting, No diarrhea, Yes constipation, No blood in stool, No acid reflux, No hemorrhoids, No ulcers, No gallbladder problem and No black,tarry stools Keith Hematologic: No blood thinners, No blood disorders, No bleeding, No anemia and No blood clots Neuro Neurologic: No system reviewed and no additional complaints, except as documented, No as per HPI, No abnormal gait, No abnormal hearing, No abnormal movements, No abnormal speech, No behavioral changes, No burning sensations, No confusion, No convulsions, No disequilibrium, No dizziness, No localized weakness, No frequent falls, No headache(s), No lack of coordination, No loss of vision, No memory loss, Yes numbness, No other visual disturbances, No radicular pain, No restless legs, No sensory deficit, No syncope, Yes tingling, No tremor(s), No weakness and No other Exam Const General: cooperative Orientation: alert and oriented x3 HENMT Head: normal to inspection Neck Neck: normal visual inspection and full ROM Chest Chest palpation & inspection: normal inspection of the chest Resp Effort & Inspection: normal respiratory effort Auscultation: clear to auscultation bilaterally Cardio Rate: regular rate Rhythm: regular rhythm GI Inspection: non-distended Palpation: soft and nontender Skin General: no rashes or lesions noted Neuro General: patient alert and patient oriented x3 Extrem General: full ROM Psych Appearance: grossly normal Mental Status: mental status grossly normal Assessment and Plan Assessment and Plan (1) Weight loss: Status: Acute (2) Abdominal pain: Status: Acute Qualifiers: Abdominal location: left upper quadrant Qualified Code(s): R10.12 - Left upper quadrant pain Orders: Orders Colonoscopy 01/21/23 EGD 01/21/23 Plan The only pain that the patient is experiencing is left-sided flank pain. I will perform an EGD and colonoscopy to rule out GI malignancy but I would highly recommend that if the scopes are negative the patient receive a CT scan to check for other malignancy. I explained endoscopy in detail to the patient. I explained the risks including but not limited to stroke or heart attack with anesthesia, perforation of the GI tract, bleeding, infection. I explained that any of these could necessitate further emergency surgery. The patient understands and all questions were answered sufficiently. The patient wishes to proceed with procedure. Adam Brown MD Pager: [facility] [address] [place] [address] [address] [place] [address] Office: I have examined the patient and the H&P has been reviewed. There are no clinical changes since date of exam.
--- NOTE | 2023-03-05 11:23 | OP.COLON_ITS ---
Patient Name: Evans Robison Procedure Date: 03/05/2023 10:43 AM Date of : 1970 Age: 52 Procedure: Colonoscopy Indications: Weight loss Providers: Adam Brown MD Medicines: Monitored Anesthesia Care Patient Profile: This is a 52 year old male. Refer to note in patient chart for documentation of history and physical. Last Colonoscopy: none. The patient's first colonoscopy is today. Complications: No immediate complications. Procedure: Pre-Anesthesia Assessment: - Prior to the procedure, a History and Physical was performed, and patient medications and allergies were reviewed. The patient's tolerance of previous anesthesia was also reviewed. The risks and benefits of the procedure and the sedation options and risks were discussed with the patient. All questions were answered, and informed consent was obtained. Prior Anticoagulants: The patient has taken no anticoagulant or antiplatelet agents. After reviewing the risks and benefits, the patient was deemed in satisfactory condition to undergo the procedure. After I obtained informed consent, the scope was passed under direct vision. Throughout the procedure, the patient's blood pressure, pulse, and oxygen saturations were monitored continuously. The pediatric colonoscope was introduced through the anus and advanced to the cecum, identified by appendiceal orifice and ileocecal valve. The colonoscopy was performed without difficulty. The patient tolerated the procedure well. The quality of the bowel preparation was good. The ileocecal valve, appendiceal orifice, and rectum were photographed. Scope In: 10:45:06 AM Scope Withdrawal Time 0 hours 7 minutes 37 seconds Scope Out: 11:05:35 AM Total Procedure Duration Time 0 hours 20 minutes 29 seconds Findings: The entire examined colon appeared normal on direct and retroflexion views. Impression: - The entire examined colon is normal on direct and retroflexion views. - No specimens collected. Recommendation: - Discharge patient to home. - Resume previous diet. - Continue present medications. - Repeat colonoscopy in 10 years for screening purposes. - Perform CT scan (computed tomography) of the chest with contrast at appointment to be scheduled. - Perform CT scan (computed tomography) of the abdomen with contrast at appointment to be scheduled. Procedure Code(s): --- Professional --- 68600, Colonoscopy, flexible; diagnostic, including collection of specimen(s) by brushing or washing, when performed (separate procedure) Diagnosis Code(s): --- Professional --- R63.4, Abnormal weight loss CPT copyright 2021 [employer]. All rights reserved. The codes documented in this report are preliminary and upon medicare sales representative review may be revised to meet current compliance requirements. Adam Brown MD 03/05/2023 11:22:40 AM This report has been signed electronically. Number of Addenda: 0 Note Initiated On: 03/05/2023 10:43 AM
--- NOTE | 2023-03-05 11:23 | OP.CCLET_ITS ---
03/05/2023 Meena Mendes [facility] Re : Colonoscopy procedure for Evans Robison [facility] This procedure was performed on Sunday, March 05, 2023. My impressions and recommendations are as follows: Impressions : - The entire examined colon is normal on direct and retroflexion views. - No specimens collected. Recommendations : - Discharge patient to home. - Resume previous diet. - Continue present medications. - Repeat colonoscopy in 10 years for screening purposes. - Perform CT scan (computed tomography) of the chest with contrast at appointment to be scheduled. - Perform CT scan (computed tomography) of the abdomen with contrast at appointment to be scheduled. My findings are described in the full procedure note, which is enclosed. If I can be of further assistance, please feel free to contact me at Doctor phone number(s): , Work: . Sincerely, Adam Brown MD 03/05/2023 11:22:40 AM This report has been signed electronically.
--- NOTE | 2023-03-05 11:24 | OP.EGD_ITS ---
Patient Name: Evans Robison Procedure Date: 03/05/2023 10:32 AM Date of : 1970 Age: 52 Procedure: Upper GI endoscopy Indications: Weight loss Providers: Adam Brown MD Medicines: Monitored Anesthesia Care Patient Profile: This is a 52 year old male. Refer to note in patient chart for documentation of history and physical. Complications: No immediate complications. Procedure: Pre-Anesthesia Assessment: - Prior to the procedure, a History and Physical was performed, and patient medications and allergies were reviewed. The patient's tolerance of previous anesthesia was also reviewed. The risks and benefits of the procedure and the sedation options and risks were discussed with the patient. All questions were answered, and informed consent was obtained. Prior Anticoagulants: The patient has taken no anticoagulant or antiplatelet agents. After reviewing the risks and benefits, the patient was deemed in satisfactory condition to undergo the procedure. After obtaining informed consent, the endoscope was passed under direct vision. Throughout the procedure, the patient's blood pressure, pulse, and oxygen saturations were monitored continuously. The gastroscope was introduced through the mouth, and advanced to the fourth part of duodenum. The upper GI endoscopy was accomplished without difficulty. The patient tolerated the procedure well. Scope In: 10:40:41 AM Scope Out: 10:42:34 AM Total Procedure Duration Time 0 hours 1 minute 53 seconds Findings: The esophagus was normal. The stomach was normal. The examined duodenum was normal. Impression: - Normal esophagus. - Normal stomach. - Normal examined duodenum. - No specimens collected. Recommendation: - Discharge patient to home. - Resume previous diet. - Continue present medications. Procedure Code(s): --- Professional --- 43199, Esophagogastroduodenoscopy, flexible, transoral; diagnostic, including collection of specimen(s) by brushing or washing, when performed (separate procedure) Diagnosis Code(s): --- Professional --- R63.4, Abnormal weight loss CPT copyright 2021 [employer]. All rights reserved. The codes documented in this report are preliminary and upon drywall stripper review may be revised to meet current compliance requirements. Adam Brown MD 03/05/2023 11:24:05 AM This report has been signed electronically. Number of Addenda: 0 Note Initiated On: 03/05/2023 10:32 AM
--- NOTE | 2023-03-05 11:25 | OP.CCLET_ITS ---
03/05/2023 Meena Mendes [facility] Re : Upper GI end[facility] This procedure was performed on Sunday, March 05, 2023. My impressions and recommendations are as follows: Impressions : - Normal esophagus. - Normal stomach. - Normal examined duodenum. - No specimens collected. Recommendations : - Discharge patient to home. - Resume previous diet. - Continue present medications. My findings are described in the full procedure note, which is enclosed. If I can be of further assistance, please feel free to contact me at Doctor phone number(s): , Work: . Sincerely, Adam Brown MD 03/05/2023 11:24:05 AM This report has been signed electronically.
== END 2023-03-05 11:42 | disposition home or self-care (01) ==
LOC: EN 09:37 → AC 09:39
PROVIDERS: Visit Provider Surgery
PROC: 0DJD8ZZ Inspection of Lower Intestinal Tract, Via Natural or Artificial Opening Endoscopic (ICD-10-PCS; CPT 45378; principal; 2023-03-05 10:55)
DX: R63.4 Abnormal weight loss (principal); F12.90 Cannabis use, unspecified, uncomplicated; F17.210 Nicotine dependence, cigarettes, uncomplicated; Z86.010 Personal history of colon polyps; Z68.1 Body mass index [BMI] 19.9 or less, adult
CPT/HCPCS: 43235; 45378; J7120; J2405

== ENCOUNTER → 2023-03-14 | Outpatient (CLI) | payer MEDICAID, SELFPAY ==
--- NOTE | 2023-03-14 08:28 | CT_ITS ---
STUDY: CT CHEST, ABDOMEN T PELVIS WITH CONTRAST REASON FOR EXAM: Male, 52 years old. wt loss. EGD and Colonscopy normal RADIATION DOSAGE (If Supplied By Facility): CTDIvol = ( 9.97 ) mGy, DLP = ( 658.57 ) mGycm TECHNIQUE: Transaxial imaging was performed following intravenous administration of Oral and IV Readi-CAT and 100mL Isovue-300. Multiplanar coronal and sagittal images were reformatted. Individualized dose optimization techniques were used for this CT. COMPARISON: No relevant priors. FINDINGS: CHEST Bilateral apical pulmonary scarring. Mild degree of emphysematous changes. There is no demonstrated pleural abnormality. Normal heart and pericardium. Normal mediastinum. Normal hilar regions. Normal unenhanced pulmonary arteries. Normal aorta arch and descending thoracic aorta. There is demineralization of the thoracic spine. There is no demonstrated abnormality of the visualized upper abdomen. ABDOMEN The visualized lung bases are unremarkable. The visualized portions of the heart are within normal limits. 5 mm cyst in the lateral aspect of the right lobe of the liver. One centimeters cyst in the central portion of the right lobe. Normal gallbladder and extrahepatic biliary system. Normal spleen. Normal pancreas. Normal bilateral adrenal glands. Normal right kidney. Normal left kidney. Normal visualized stomach. Normal small intestine. There are multiple colonic diverticula consistent with diverticulosis. The appendix is visualized and appears normal. There is scattered atherosclerotic calcification of the abdominal aorta, without a demonstrated aneurysm. Normal inferior vena cava. Normal retroperitoneum. Normal abdominal wall. Normal osseous structures. PELVIS Normal urinary bladder. Normal visualized small intestine. Normal visualized colon. There is no pelvic fluid. There is no pelvic lymphadenopathy or mass lesion. There is diffuse atherosclerotic calcification of the pelvic arteries. Normal abdominal wall. Normal osseous structures. CT/CT Chest, Abd, Pel w/Contrast IMPRESSION: Scattered hepatic cysts. Electronically Signed: Azam James MD at 14:27 EST ,
--- NOTE | 2023-03-14 08:50 | RAD_ITS ---
EXAM: XR LUMBOSACRAL SPINE, 2 OR 3 VIEWS CLINICAL INDICATION: LOW BACK PAIN TECHNIQUE: Frontal and lateral views of the lumbar spine and sacrum. COMPARISON: No relevant prior studies available. FINDINGS: VERTEBRAE: Unremarkable. Preserved vertebral body height. No fracture. No spondylolisthesis. Preservation of the normal lumbar lordosis. No significant facet arthropathy. DISC SPACES: No acute findings. Disc spaces are maintained. GASTROINTESTINAL TRACT: Unremarkable as visualized. Included bowel gas pattern is non-obstructive. RAD/Lumbar Spine 2 or 3 Views IMPRESSION: No evidence of lumbar spinal fracture or spondylolisthesis. Electronically Signed: Wai Jade MD at 19:13 EST ,
== END | disposition home or self-care (01) ==
LOC: CT 08:27 → RAD 08:48
PROVIDERS: Referring Provider Nurse Practitioner Family; Visit Provider Nurse Practitioner Family
DX: M54.50 Low back pain, unspecified (principal); R63.4 Abnormal weight loss; R10.12 Left upper quadrant pain
CPT/HCPCS: 71260; 72100; 74177; Q9967

== ENCOUNTER → 2023-03-28 | Outpatient (CLI) | payer MEDICAID, SELFPAY ==
--- NOTE | 2023-03-28 07:22 | CT_ITS ---
STUDY: LOW DOSE CT LUNG CANCER SCREENING REASON FOR EXAM: Male, 52 years old. Nicotine dependence, unspecified, uncomplicated. Patient smokes 1 pack per day for 44 years. RADIATION DOSAGE (If Supplied By Facility): CTDIvol = ( 2.01 ) mGy, DLP = ( 82.53 ) mGycm TECHNIQUE: No contrast was administered. Low dose technique was utilized (average mAS-38 and kVp 120). 1.25 mm axial source images with a slice interval of 1.25-mm were reconstructed in lung windows. 2.5 mm axial source images with a slice interval of 2.5-mm were reconstructed in lung windows. 5.0 mm axial source images with a slice interval of 5.0-mm were reconstructed in soft tissue windows. COMPARISON: Comparison is made with prior study dated March 14, 2023. NODULES: No suspicious nodules are seen. Emphysema: Emphysematous changes. Stable bilateral apical scarring. Endobronchial lesion: None Aorta: Mild atherosclerotic plaque formation of the aortic arch. CORONARY ARTERIES: Coronary artery calcification is seen. Heart: Unremarkable Pulmonary artery: Unremarkable Mediastinal nodes: Unremarkable Other chest and abdominal findings: CT/Low Dose CT Lung Screening IMPRESSION: Lung-RADS category 2 - Continue annual screening with LDCT in 12 months. IMPORTANT NOTES FOR USE: ACR Lung-RADS Version 1.1 Assessment Categories Release Date: 2018 Category: Coded 0-4 bases on nodule(s) with highest degree of suspicion. Negative screen is defined as categories 1 and 2; a positive screen is defined as categories 3 and 4. Category 3 and 4A nodules that are unchanged on interval CT should be coded as category 2, and individuals returned to screening in 12 months. Category 4X: Category 3 or 4 nodules with additional imaging findings that increase the suspicion of lung cancer, such as spiculation, GGN that doubles in size in 1 year, enlarged lymph notes, etc. Category Modifiers: S (significant finding unrelated to lung cancer) Electronically Signed: Azam James MD at 11:02 EST ,
== END | disposition home or self-care (01) ==
LOC: CT 07:21
PROVIDERS: Referring Provider Nurse Practitioner Family; Visit Provider Nurse Practitioner Family
DX: Z12.2 Encounter for screening for malignant neoplasm of respiratory organs (principal); F17.200 Nicotine dependence, unspecified, uncomplicated
CPT/HCPCS: 71271

== ENCOUNTER 2023-09-25 05:51 | Observation (INO) | payer MEDICAID, SELFPAY ==
[2023-09-25 05:51] VITALS: BP 145/87; PULSE 76; RESP 16; TEMP 36; O2SAT 98; BMI 18.3
--- NOTE | 2023-09-25 05:58 | CT_ITS ---
EXAM: CT Abdomen And Pelvis W/ Contrast Injection HISTORY: suprapubic pain TECHNIQUE: Routine protocol CT abdomen pelvis. IV Contrast: IV 100mL Isovue-370 . Oral Contrast: without. Sagittal and coronal images were reconstructed. RADIATION DOSAGE (If Supplied By Facility): CTDIvol = ( 15.71 ) mGy, DLP = ( 423.13 ) mGycm Individualized dose optimization techniques were used for this CT. COMPARISON: CT abdomen and pelvis 03/14/2023. LIMITATIONS: None. FINDINGS: LOWER CHEST: Lung bases are clear. LIVER: A few small cysts. GALLBLADDER/BILE DUCTS: Unremarkable. PANCREAS: Unremarkable. SPLEEN: Unremarkable. ADRENAL GLANDS: Unremarkable. KIDNEYS / URETERS: Unremarkable. BOWEL / MESENTERY: Fluid distended nondilated small bowel in the mid to lower abdomen. Suggestion of wall thickening of the sigmoid colon, possibly exaggerated by suboptimal distention. No bowel obstruction. APPENDIX: Not clearly identified. No findings to suggest acute appendicitis. PERITONEUM: No free air. No free fluid. VESSELS: Abdominal aorta is normal caliber. RETROPERITONEUM: Unremarkable. REPRODUCTIVE ORGANS: Unremarkable. BLADDER: Unremarkable. ABDOMINAL WALL: Unremarkable. BONES: No acute abnormality. OTHER: None. CT/Abdomen/Pelvis W IV Cont ONLY IMPRESSION: Suggestion of wall thickening sigmoid colon likely nondistention. Acute colitis or diverticulitis is not entirely excluded. Fluid distended small bowel is nonspecific and may be seen with enteritis or ileus. Electronically Signed: Charlene Reynaga MD at 7:47 EDT ,
--- NOTE | 2023-09-25 05:59 | EDS_ITS ---
HPI HPI - GI History of Present Illness Chief Complaint: Abd Pain Informant: patient Narrative Narrative: Presents to ED progressive pain since 10 AM yesterday suprapubic region. Similar pains when he had diverticulitis back in 2016 when he was was hospitalized for a week at that time. He had a colonoscopy he believes a year ago. States when he urinates had pain in the suprapubic region however there is no dysuria. He states he has sweats due to the pain. He had a normal bowel movement yesterday. Prior similar symptoms: Yes PFSH PFSH Medical History Wears glasses Arthritis Restless legs Back pain Injury of back Injury of head and neck History of ulceration History of diverticulitis Smoker Asthma History of stress test History of irregular heartbeat Smoking addiction Marijuana use History of colon polyps GERD (gastroesophageal reflux disease) Abdominal pain Weight loss Early satiety Back pain Home Medications ?Medication ?Instructions ?Recorded ?Last Taken ?Type NK 02/26/23 Unknown History Allergy/AdvReac Type Severity Reaction Status Date / Time No Known Allergies Allergy Verified 09/25/23 05:51 Family History Father Heart disease Mother Cancer lung cancer Grandmother Breast cancer Grandfather Heart disease Surgical History Hx of surgical procedure History of lung surgery History of shoulder surgery History of surgery on lower extremity H/O hand surgery Social History Smoking Status: Current every day smoker tobacco type: cigarettes alcohol intake: never substance use type: marijuana ROS ROS ED Constitutional Constitutional ED: Reports sweats; Denies chills or fever(s) Eyes Eyes: Denies change in vision ENT ENT ED: Denies dysphagia or sore throat Cardiovascular Cardiovascular: Denies chest pain, leg edema, palpitations or racing heartbeat Respiratory/Chest Respiratory/Chest: Denies cough, dyspnea or dyspnea on exertion Gastrointestinal Gastrointestinal: Reports abdominal pain; Denies diarrhea, nausea or vomiting Genitourinary Genitourinary ED: Denies dysuria, hematuria or urinary frequency Musculoskeletal Musculoskeletal: Denies back pain, extremity pain or neck pain Integumentary Denies rash or wounds Neurologic Neurologic: Denies headache(s), paresthesias or weakness EXAM Physical Exam Const Vital Signs: 09/25/23 05:51 09/25/23 07:51 09/25/23 07:57 Temperature 96.8 F L 97.6 F L Temperature Source Temporal Pulse Rate 76 78 74 Respiratory Rate 16 18 18 Blood Pressure 145/87 H 120/78 120/78 Blood Pressure Mean 106 92 92 Pulse Ox 98 98 98 Oxygen Delivery Method Room Air Room Air Positive well nourished and well developed Constitutional Narrative: Nontoxic, uncomfortable General Appearance ED: well developed HEENT Reports moist mucous membranes normocephalic and atraumatic Eyes EOMs intact bilaterally and conjunctivae normal General Eye ED: Yes normal appearance of both eyes Neck no lymphadenopathy and supple General: Negative for tenderness Chest Wall Chest: Negative for tenderness Resp normal respiratory effort and normal air movement Effort and Inspection: symmetric chest movement; Negative for respiratory distress Cardio regular rate, regular rhythm and no murmurs Peripheral Pulses: pulses 2+ throughout GI normal to inspection, nondistended, normoactive bowel sounds GI Narrative: Tender suprapubic region, negative Plasencia's. Palpation: Negative for guarding or rebound tenderness present Narrative: No pain in the scrotum or perineal area. Back/Spine no CVA tenderness and no thoracic nor lumbar tenderness Extremity normal to inspection General Extremety ED: Negative for edema or tenderness General Extremity: Negative for edema Neuro oriented x3 and no sensory deficits noted Sensorium / Orientation: awake and alert Skin no rashes or lesions noted and no wounds MDM MDM MDM Narrative Medical decision making narrative: Interventions / MDM: Differential diagnosis: Diverticulitis, appendicitis, pneumoperitoneum Diagnosis considered but do not suspect: N/A My EKG interpretation: N/A Imaging independently reviewed and interpreted by myself: CT abdomen pelvis with IV contrast External documents reviewed: N/A Test considered but not ordered:N/A ED course: Patient uncomfortable on exam. Suprapubic tenderness. Similar symptoms diverticulitis in the past. IV reestablish basic labs urine CT scan abdomen pelvis further evaluation. Morphine Zofran and fluids ordered for symptom control. 0720: White count 16.9. Creatinine 0.94. CT result pending. However reviews laboratory changes posterior to the bladder. He states he had transient relief with IV dye that was given during CT. However pain still there. Will redosed with pain medicines. 0800: CT scan noting thickening sigmoid region. Clinically his region of pain with a white count of 17,000 concerning for diverticulitis. Pain is more controlled at this time. He started on Rocephin and Flagyl IV. I discussed with hospitalist Dr. Ken for admission. Re-evaluation: stable Disposition discussed with patient/family/significant other: Patient Case discussed with consulting clinician: Hospitalist This note was generated with [employer] dictation software. It may contain incorrect words, spelling, and punctuation that were not noted in checking the note before signing. Lab Data Attestation: I reviewed the patient's lab results. Labs: Laboratory Results - last 24 hr 09/25/23 09/25/23 09/25/23 05:58 06:24 07:06 WBC 16.9 H RBC 4.79 Hgb 14.7 Hct 44.4 MCV 92.7 MCH 30.7 MCHC 33.1 RDW Std Deviation 50.4 H RDW Coeff of Omar 14.6 Plt Count 266 MPV 10.0 Immature Gran % (Auto) 0.600 Neut % (Auto) 66.6 Lymph % (Auto) 20.2 [place] % (Auto) 9.6 Eos % (Auto) 2.5 Baso % (Auto) 0.5 Absolute Neuts (auto) 11.3 H Absolute Lymphs (auto) 3.43 Nucleated RBC % 0 Sodium 136 Potassium 4.1 Chloride 107 Carbon Dioxide 24.0 Anion Gap 5 BUN 12 Creatinine 0.94 Estim Creat Clear Calc 73.45 Est GFR (MDRD) Af Amer 108 Est GFR (MDRD) Non-Af 89 BUN/Creatinine Ratio 12.8 Glucose 151 H Lactic Acid 1.0 Calcium 9.0 Urine Color Yellow Urine Clarity Clear Urine pH 6.0 Ur Specific [place] 1.010 Urine Protein Negative Urine Glucose (UA) Normal Urine Ketones Negative Urine Occult Blood Negative Urine Nitrite Negative Urine Bilirubin Negative Urine Urobilinogen Normal Ur Leukocyte Esterase Negative Urine RBC 0-5 SEEN Urine WBC 0-5 SEEN Ur Squamous Epith Cells 0 SEEN Urine Bacteria 1+ Urine Mucus 0 SEEN Radiography Diagnostic Testing: Clinical Impression(s) from Imaging Studies Abdomen/Pelvis CT 09/25/23 05:58 IMPRESSION: Suggestion of wall thickening sigmoid colon likely nondistention. Acute colitis or diverticulitis is not entirely excluded. Fluid distended small bowel is nonspecific and may be seen with enteritis or ileus. Electronically Signed: Charlene Reynaga MD at 7:47 EDT , Discharge Plan Triage Chief Complaint: Abd Pain ED Provider: Leoncio Timmons Dx/Rx/DC Orders Clinical Impression: Abdominal pain, Diverticulitis of sigmoid colon, Leukocytosis Prescriptions: No Action NK Primary Care Provider: Meena Carlos Referrals: [facility] Sur[facility],Meena Mendes [Primary Care Provider] - Print Language: [place] Citizen Disposition Disposition: Acute Care Hospital [facility]
[2023-09-25] MEDS: Ondansetron 4 MG/2 ML Vial IV (06:11)
[2023-09-25] MEDS: Morphine 4 MG/ML Syringe IV ×2 (06:12→07:39)
[2023-09-25] MEDS: 0.9% Normal Saline (1000mL) 1,000 ML 125 ML IV ×3 (06:14→17:50)
[2023-09-25 06:34] LABS: Absolute Lymphocyte Count 3.43 X10^3/uL (0.83-4.51); Absolute Neutrophil Count 11.3 X10^3/uL (2.0-7.7); Basophil# 0.08 X10^3/uL; Basophil% 0.5 % (0-1); Eosinophil# 0.43 X10^3/uL; Eosinophils% 2.5 % (0-5); Hematocrit 44.4 % (40-54); Hemoglobin 14.7 g/dL (13.0-16.5); Lymphocyte # 3.43 X10^3/ul (0.83-4.51); Lymphocyte % 20.2 % (19-41); Mean Corp Hgb Conc 33.1 g/dL (32-36); Mean Corpuscular Hgb 30.7 pg (27.0-32.0); Mean Corpuscular Volume 92.7 fL (80-94); Monocyte# 1.62 X10^3/uL; Monocyte% 9.6 % (0-10); NRBC Flagged by Analyzer 0 % (0-5); Neutrophil # 11.27 X10^3/uL (2.7-7.7); Neutrophil % 66.6 % (47-70); POSITIVE DIFFERENTIAL YES; Platelet Count 266 K/mm3 (150-450); RBC Distribution Width CV 14.6 % (11.6-14.6); RBC Distribution Width SD 50.4 fl (35.1-43.9); Red Blood Count 4.79 M/mm3 (4.6-6.2); White Blood Count 16.9 K/mm3 (4.4-11.0)
[2023-09-25 06:40] LABS: Differential Indicated SCAN CRITERIA MET
[2023-09-25 06:55] LABS: Anion Gap 5 (5-15); BUN 12 mg/dL (7-18); BUN/Creat Ratio 12.8 RATIO (10-20); Chloride 107 mmol/L (98-107); Creatinine, Serum 0.94 mg/dL (0.70-1.30); EST Glomerular Filtration Rate 89 mL/min (>60); Est Glom Filt Rate - Afr Amer 108 mL/min (>60); Estimated Creatinine Clearance 73.45 ml/min; Glucose 151 mg/dL (74-106); Potassium 4.1 mmol/L (3.5-5.1); Sodium Level 136 mmol/L (136-145)
[2023-09-25 07:13] LABS: Mucous, Urine 0 SEEN /hpf (<or=2+); Squamous Epithelial Cells - UA 0 SEEN /hpf (0-5)
[2023-09-25 07:30] LABS: Color, Urine Yellow (Yellow); Glucose, Dipstick Normal (Normal); Ketone-Dipstick Negative (Negative); Leukocyte Esterase-Dipstick Negative /ul (Negative); Nitrite-Dipstick Negative (Negative); Occult Blood-Urine Negative /ul (Negative); Protein-Dipstick Negative (Negative); Urine Bilirubin Dipstick Negative (Negative); Urine Clarity Clear (Clear); Urine Urobilinogen Normal (Normal)
[2023-09-25 07:38] LABS: Bacteria 1+ /hpf (None Seen); Red Blood Cells-Urine 0-5 SEEN /hpf (0-5); White Blood Cells 0-5 SEEN /hpf (0-5)
[2023-09-25 07:51] VITALS: BP 120/78; PULSE 78; RESP 18; O2SAT 98
[2023-09-25 07:57] VITALS: BP 120/78; PULSE 74; RESP 18; TEMP 36.4; O2SAT 98
[2023-09-25] MEDS: metroNIDAZOLE 500 MG/100 ML BAG 100 MG IV (08:04)
--- NOTE | 2023-09-25 08:20 | NURSING ---
MED SURG OBS KOTSONIS DIVERTICULITIS, ABD PAIN
[2023-09-25] MEDS: Ceftriaxone 1 GM/50 ML BAG IV (08:51)
[2023-09-25 09:24] VITALS: BMI 18.2
[2023-09-25 09:25] VITALS: BP 101/66; PULSE 59; RESP 17; TEMP 36.5; O2SAT 100
[2023-09-25] MEDS: Morphine 2 MG/ML Syringe IV ×4 (10:49→22:39)
--- NOTE | 2023-09-25 12:05 | CHAPLAIN ---
Type of Pastoral Visit _x__ Initial Visit ___ Follow-up Visit ___ On-call Visit ___ General Patient Visit ___ Spiritual Assessment ___ Family Conference ___ Bereavement ___ Rapid Response ___ Code Blue ___ Other (describe below) Pastoral Care Referral From _x__ Patient ___ Family ___ Nurse ___ Physician ___ Neon Pumper ___ Supervisor Lens Generating ___ Other (describe below) Sacrament/Intervention _x__ Active listening ___ Anointing ___ Taoism ___ Bereavement ___ Communion ___ Mae exploration ___ ___ Life review ___ Prayer ___ Reconciliation ___ Sacrament of Sick ___ Supportive presence ___ Wedding ___ Other (describe below) Pastoral Comments patient is trying to rest but is still awake; pt admits to pain and discomfort; pt says this is not his first episode; pt denies having any needs; when offering a prayer the pt says do whatever you want to do; offer of future support given as pt desires
[2023-09-25] MEDS: Piperacil/Tazobactam 3.375 GM in 0.9% Normal Saline (50mL MB+) 50 ML IV ×2 (13:45→20:56)
[2023-09-25] MEDS: 0.9% Normal Saline (250mL Bag) 250 ML 15 ML IV (13:55)
--- NOTE | 2023-09-25 15:25 | HP.PCM.HOS_ITS ---
HPI - General General Date of Admission: 09/25/23 HPI Narrative VASILE KENNEDY, is a 52 M who presents to the hospital with abdominal pain that started the day before at around 10 AM. He says it got a little bit better but then came back at noon and it never went away. He states that it has been variable in intensity and he noticed that it is worse with food. No fevers or chills but he does have a leukocytosis today at 16.9. CT of the abdomen pelvis cannot exclude diverticulitis and colitis and he says that he has had intermittent abdominal pain in the past that almost feels like constipation, this time he did try to take multiple Dulcolax without any relief. [facility] Medical History Wears glasses Arthritis Restless legs Back pain Injury of back Injury of head and neck History of ulceration History of diverticulitis Smoker Asthma History of stress test History of irregular heartbeat Smoking addiction Marijuana use History of colon polyps GERD (gastroesophageal reflux disease) Abdominal pain Weight loss Early satiety Back pain Home Medications ?Medication ?Instructions ?Recorded ?Last Taken ?Type NK 02/26/23 Unknown History Allergy/AdvReac Type Severity Reaction Status Date / Time No Known Allergies Allergy Verified 09/25/23 05:51 Family History Father Heart disease Mother Cancer lung cancer Grandmother Breast cancer Grandfather Heart disease Surgical History Hx of surgical procedure History of lung surgery History of shoulder surgery History of surgery on lower extremity H/O hand surgery Social History Smoking Status: Current every day smoker tobacco type: cigarettes alcohol intake: never substance use type: marijuana ROS Constitutional Constitutional: Denies chills, fatigue, fever(s) or malaise Eyes Eyes: Denies blurry vision ENT HEENT: Denies headache(s) or nasal discharge Cardiovascular Cardiovascular: Denies chest pain, dyspnea on exertion or syncope Respiratory/Chest Respiratory/Chest: Denies cough, shortness of breath at rest or shortness of breath with exertion Gastrointestinal Gastrointestinal: Reports abdominal pain; Denies constipation, diarrhea, nausea or vomiting Genitourinary Genitourinary: Denies dysuria Neurologic Neurologic: Denies focal weakness, numbness or tremor(s) Psychiatric Psychiatric: Denies anxiety or depression Vital Signs Vital Signs Vital Signs: 09/25/23 05:51 09/25/23 07:51 09/25/23 07:57 Temperature 96.8 F L 97.6 F L Temperature Source Temporal Pulse Rate 76 78 74 Pulse Strength Respiratory Rate 16 18 18 Blood Pressure 145/87 H 120/78 120/78 Blood Pressure Mean 106 92 92 Pulse Ox 98 98 98 Oxygen Delivery Method Room Air Room Air 09/25/23 09:25 09/25/23 09:59 Temperature 97.7 F L Temperature Source Oral Pulse Rate 59 L Pulse Strength Normal (2+) Respiratory Rate 17 Blood Pressure 101/66 Blood Pressure Mean 77 Pulse Ox 100 Oxygen Delivery Method Room Air Weight Weight: 127 lb 3.307 oz Body Mass Index (BMI) 18.2 Physical Exam Narrative General: Alert, Oriented x3, Cooperative, No apparent distress HEENT: Atraumatic, PERRLA, EOMI, Normocephalic Oral: Moist Mucosa Neck: Supple, No JVD Lungs: Clear to auscultation, Normal air movement, No rhonchi, No wheeze, No rales Cardiovascular: Regular rate, Regular Rhythm, Normal S1, Normal S2, No murmurs Abdomen: Soft, mildly tender to palpation in pelvis, Non-Distended, No Hepato- splenomegaly Extremities: No edema, Capillary Refill Less than 3 Seconds Skin: No rashes, No breakdown Musculoskeletal: No Tenderness to Palpation of Joints or Extremities Neurological: No focal neurological deficits, Motor Exam 5/5 strength throughout, Sensory exam intact to light touch and pain Psych/Mental Status: Normal Affect, Appropriate Results Lab / Micro Data 09/25/23 05:58 09/25/23 05:58 Labs: Laboratory Results - last 24 hr 09/25/23 05:58: WBC 16.9 H, RBC 4.79, Hgb 14.7, Hct 44.4, MCV 92.7, MCH 30.7, MCHC 33.1, RDW Std Deviation 50.4 H, RDW Coeff of Omar 14.6, Plt Count 266, MPV 10.0, Immature Gran % (Auto) 0.600, Neut % (Auto) 66.6, Lymph % (Auto) 20.2, [place] % (Auto) 9.6, Eos % (Auto) 2.5, Baso % (Auto) 0.5, Absolute Neuts (auto) 11.3 H, Absolute Lymphs (auto) 3.43, Nucleated RBC % 0, Diff Path Review May foll, Sodium 136, Potassium 4.1, Chloride 107, Carbon Dioxide 24.0, Anion Gap 5, BUN 12, Creatinine 0.94, Estim Creat Clear Calc 73.45, Est GFR (MDRD) Af Amer 108, Est GFR (MDRD) Non-Af 89, BUN/Creatinine Ratio 12.8, Glucose 151 H, Calcium 9.0 09/25/23 06:24: Lactic Acid 1.0 09/25/23 07:06: Urine Color Yellow, Urine Clarity Clear, Urine pH 6.0, Ur Specific [place] 1.010, Urine Protein Negative, Urine Glucose (UA) Normal, Urine Ketones Negative, Urine Occult Blood Negative, Urine Nitrite Negative, Urine Bilirubin Negative, Urine Urobilinogen Normal, Ur Leukocyte Esterase Negative, Urine RBC 0-5 SEEN, Urine WBC 0-5 SEEN, Ur Squamous Epith Cells 0 SEEN, Urine Bacteria 1+, Urine Mucus 0 SEEN Imaging Radiology Impression Abdomen/Pelvis CT 09/25/23 05:58 IMPRESSION: Suggestion of wall thickening sigmoid colon likely nondistention. Acute colitis or diverticulitis is not entirely excluded. Fluid distended small bowel is nonspecific and may be seen with enteritis or ileus. Electronically Signed: Charlene Reynaga MD at 7:47 EDT Reading Location ID and State: [facility] / [place] Tel , Service support , Assessment & Plan Assessment/Plan (1) Diverticulitis of sigmoid colon: PLAN: Plan 1. Diverticulitis versus colitis ? There is a possibly that he has IBS as well as he has been having intermittent abdominal pain over the last couple years that would often resolve on its own ? He does have a leukocytosis so we will treat with Zosyn and make him n.p.o. ? Continue with IV fluids ? He has no systemic signs of SIRS or sepsis ? He did have a colonoscopy on 03/05/2023 that was completely normal so inflammatory bowel disease is unlikely and he does not have a family history of it ? Will attempt an enteric pathogen panel DVT: Ambulation 75 minutes was spent on direct patient care, including documentation as well as chart review and collaboration with colleagues Charges/Coding Visit Charges Inpatient E&M: 04061 Init Hosp L3
[2023-09-25 15:29] VITALS: BP 105/60; PULSE 67; RESP 16; TEMP 37; O2SAT 99
[2023-09-25] MEDS: Famotidine 20 MG Tablet PO (20:56)
[2023-09-25 21:29] VITALS: BP 92/60; PULSE 56; RESP 16; TEMP 36.6; O2SAT 98
[2023-09-25] MEDS: Pantoprazole Sodium 40 MG Tablet PO (23:22)
[2023-09-26] MEDS: 0.9% Normal Saline (1000mL) 1,000 ML 125 ML IV ×2 (01:57→09:52)
[2023-09-26 05:00] VITALS: BP 91/60; PULSE 56; RESP 18; TEMP 36.3; O2SAT 99
[2023-09-26] MEDS: Piperacil/Tazobactam 3.375 GM in 0.9% Normal Saline (50mL MB+) 50 ML IV (05:26)
[2023-09-26 05:31] LABS: Absolute Lymphocyte Count 1.68 X10^3/uL (0.83-4.51); Absolute Neutrophil Count 8.7 X10^3/uL (2.0-7.7); Basophil# 0.06 X10^3/uL; Basophil% 0.5 % (0-1); Eosinophil# 0.08 X10^3/uL; Eosinophils% 0.7 % (0-5); Hematocrit 36.6 % (40-54); Hemoglobin 12.1 g/dL (13.0-16.5); Lymphocyte # 1.68 X10^3/ul (0.83-4.51); Lymphocyte % 14.3 % (19-41); Mean Corp Hgb Conc 33.1 g/dL (32-36); Mean Corpuscular Hgb 31.3 pg (27.0-32.0); Mean Corpuscular Volume 94.6 fL (80-94); Mean Platelet Vol. 9.8 fl (6.2-12.0); Monocyte# 1.19 X10^3/uL; Monocyte% 10.1 % (0-10); NRBC Flagged by Analyzer 0 % (0-5); Neutrophil # 8.68 X10^3/uL (2.7-7.7); Neutrophil % 73.8 % (47-70); Platelet Count 189 K/mm3 (150-450); RBC Distribution Width CV 14.9 % (11.6-14.6); RBC Distribution Width SD 52.2 fl (35.1-43.9); Red Blood Count 3.87 M/mm3 (4.6-6.2); White Blood Count 11.8 K/mm3 (4.4-11.0)
[2023-09-26] MEDS: Morphine 2 MG/ML Syringe IV (05:32)
[2023-09-26 05:52] LABS: Anion Gap 3 (5-15); BUN 12 mg/dL (7-18); BUN/Creat Ratio 13.2 RATIO (10-20); Calcium,Total 8.3 mg/dL (8.5-10.1); Chloride 110 mmol/L (98-107); Creatinine, Serum 0.91 mg/dL (0.70-1.30); EST Glomerular Filtration Rate 92 mL/min (>60); Est Glom Filt Rate - Afr Amer 112 mL/min (>60); Estimated Creatinine Clearance 75.74 ml/min; Glucose 90 mg/dL (74-106); Sodium Level 139 mmol/L (136-145)
[2023-09-26 08:11] VITALS: BP 91/60; PULSE 56; RESP 18; TEMP 36.3; O2SAT 99
[2023-09-26 09:45] VITALS: BP 104/71; PULSE 60; RESP 18; TEMP 36.2; O2SAT 100
[2023-09-26] MEDS: Pantoprazole Sodium 40 MG Tablet PO (09:51)
[2023-09-26] MEDS: Famotidine 20 MG Tablet PO (09:51)
--- NOTE | 2023-09-26 11:04 | DCINST_ITS ---
Discharge Instructions Diet Discharge Diet: No restrictions Activity Discharge Activity: Return to Normal Activity Dressing / Incision Call your doctor if you observe: Fever of 101 or Higher, Shortness of breath, Dizziness, Fainting spells, Swelling in the ankles, Chest pain and Increased palpitations (irregular heartbeat) Follow Up Care Test Results: Test results from this visit will be discussed in further detail at your follow- up appointment, if applicable. Discharge Plan Admission Admit Date/Time: 09/25/23 08:08 Attending Provider: Bran Jean [facility] Orders/Prescriptions Prescriptions: New famotidine 20 mg Tablet 20 mg PO BID 30 Days Qty: 60 0RF amoxicillin-pot clavulanate 875-125 mg tablet 1 tab PO BID Qty: 14 0RF Referrals / Follow Up: Babak Vitale DO [Med Staff - Active Staff] - Within 3 Months [facility],Meena Mendes [Primary Care Provider] - Within 1 Week Disposition Disposition (needs filled in before D/C Order can be placed): Home, Self Care
[2023-09-26 11:08] VITALS: BP 104/71; PULSE 60; RESP 18; TEMP 36.2; O2SAT 100
--- NOTE | 2023-09-26 11:37 | CASEMGMT ---
Patient has order for discharge. RN CM in to discuss needs at discharge. Patient denies needs or help at discharge. Patient had no further questions or concerns.
--- NOTE | 2023-09-26 12:05 | PHA.DC.MC.R ---
Pharmacy [facility] Pharmacy Service has performed discharge medication reconciliation and counseling for this patient. The patient's discharge medication list was reviewed for discrepancies and discrepancies were resolved. The patient was counseled on the following discharge medications and changes in medications for homegoing were reviewed. 1. AUGMENTIN 2. PEPCID The Reason for Use, instructions for use, and potential side effects were reviewed for all new medications. The patient's questions regarding all of their medications were answered. The patient was able to verbally demonstrate an understanding of their discharge medications. Medications at Discharge Home Medications amoxicillin 875 mg-potassium clavulanate 125 mg tablet 1 tab PO BID #14 tabs 09/26/23 famotidine 20 mg tablet 20 mg PO BID 30 days #60 tabs 09/26/23
--- NOTE | 2023-09-26 14:04 | PCM.DC.SUM ---
Providers Date of Admission: 09/25/23 Primary Care Physician: Meena [facility] Reason For Visit: DIVERTICULITIS Diagnosis Discharge Diagnosis (1) Diverticulitis of sigmoid colon: Status: Acute Code(s): K57.32 - Diverticulitis of large intestine without perforation or abscess without bleeding Medications at Discharge Home Medications amoxicillin 875 mg-potassium clavulanate 125 mg tablet 1 tab PO BID #14 tabs 09/26/23 famotidine 20 mg tablet 20 mg PO BID 30 days #60 tabs 09/26/23 Hospital Course Operations None Procedures None Summary of Care Provided Minutes Spent on Discharge: 33 Hospital Course: Per HPI: VASILE KENNEDY, is a 52 M who presents to the hospital with abdominal pain that started the day before at around 10 AM. He says it got a little bit better but then came back at noon and it never went away. He states that it has been variable in intensity and he noticed that it is worse with food. No fevers or chills but he does have a leukocytosis today at 16.9. CT of the abdomen pelvis cannot exclude diverticulitis and colitis and he says that he has had intermittent abdominal pain in the past that almost feels like constipation, this time he did try to take multiple Dulcolax without any relief. Hospital Course: 1. Diverticulitis?52-year-old male whose had intermittent abdominal pain with bloating and constipation since he was a kid presented to the hospital with recurrent episode of abdominal pain. CT scan demonstrated the possibility of a diverticulitis versus a colitis. He was not having any diarrhea so we were unable to get a stool sample. He was made n.p.o. started on IV fluids and the next day he said that he felt much better and I advance him to a full liquid diet which she said he tolerated he did not want to stay for a regular diet trial so he was discharged on 7 days of Augmentin to complete treatment. I do recommend that he try bowel regimens as well as fiber supplements and following up with gastroenterology as an outpatient as this does have the possibility of IBS. He did have a colonoscopy in February 2023 that was normal so unlikely to have an inflammatory bowel component. I discussed with him and his the plan for discharge today and he expressed understanding of the risk benefits of going home and would like to go home today. Physical Exam Narrative General: Alert, Oriented x3, Cooperative, No apparent distress HEENT: Atraumatic, PERRLA, EOMI, Normocephalic Oral: Moist Mucosa Neck: Supple, No JVD Lungs: Clear to auscultation, Normal air movement, No rhonchi, No wheeze, No rales Cardiovascular: Regular rate, Regular Rhythm, Normal S1, Normal S2, No murmurs Abdomen: Soft, nontender, Non-Distended, No Hepato-splenomegaly Extremities: No edema, Capillary Refill Less than 3 Seconds Skin: No rashes, No breakdown Musculoskeletal: No Tenderness to Palpation of Joints or Extremities Neurological: No focal neurological deficits, Motor Exam 5/5 strength throughout, Sensory exam intact to light touch and pain Psych/Mental Status: Normal Affect, Appropriate Weight / BMI Weight Weight: 127 lb 3.307 oz Body Mass Index (BMI) 18.2 ABG / Lab / Microbiology Data 09/26/23 05:18 09/26/23 05:18 Laboratory: Laboratory Results - last 24 hr 09/26/23 05:18: WBC 11.8 H, RBC 3.87 L, Hgb 12.1 L, Hct 36.6 L, MCV 94.6 H, MCH 31.3, MCHC 33.1, RDW Std Deviation 52.2 H, RDW Coeff of Omar 14.9 H, Plt Count 189, MPV 9.8, Immature Gran % (Auto) 0.600, Neut % (Auto) 73.8 H, Lymph % (Auto) 14.3 L, [place] % (Auto) 10.1 H, Eos % (Auto) 0.7, Baso % (Auto) 0.5, Absolute Neuts (auto) 8.7 H, Absolute Lymphs (auto) 1.68, Nucleated RBC % 0, Sodium 139, Potassium 4.0, Chloride 110 H, Carbon Dioxide 26.0, Anion Gap 3 L, BUN 12, Creatinine 0.91, Estim Creat Clear Calc 75.74, Est GFR (MDRD) Af Amer 112, Est GFR (MDRD) Non-Af 92, BUN/Creatinine Ratio 13.2, Glucose 90, Calcium 8.3 L D/C Instructions Discharge Diet: No restrictions Call your doctor if you observe: Fever of 101 or Higher, Shortness of breath, Dizziness, Fainting spells, Swelling in the ankles, Chest pain and Increased palpitations (irregular heartbeat) Meaningful Use Info Meaningful Use Meaningful Use Diagnoses (Choose all that apply): None applicable Ischemic Stroke Statin Dosing Therapy Reference: STATIN DOSE THERAPY REFERENCE: * Patients > 75 years receive moderate or high dose statin therapy. * Patients 75 years or YOUNGER should receive HIGH intensity statin dose unless contraindicated. You will be required to document reason for non-treatment if statin daily dose does not meet guidelines. HIGH DOSE STATIN THERAPY DAILY Atorvastatin > than or = to 40 mg Rosuvastatin > than or = to 20 mg Amlodipine + Atorvastatin > than or = to 2.5/40 mg Ezetimibe + Simvastatin 10/80 mg Simvastatin 80mg Discharge Plan Admission Admit Date/Time: 09/25/23 08:08 Attending Provider: Bran Jean [facility] Orders/Prescriptions Prescriptions: New famotidine 20 mg Tablet 20 mg PO BID 30 Days Qty: 60 0RF amoxicillin-pot clavulanate 875-125 mg tablet 1 tab PO BID Qty: 14 0RF Referrals / Follow Up: Babak Vitale DO [Med Staff - Active Staff] - Within [facility] Months [facility] - Within 1 Week Disposition Disposition (needs filled in before D/C Order can be placed): Home, Self Care Charges/Coding Visit Charges Inpatient E&M: 27507 Disch Hosp >30min
[2023-09-26 15:32] LABS: Pathologist Review Reviewed
== END 2023-09-26 11:06 | disposition home or self-care (01) ==
LOC: ED 08:14 → PCU 08:27
PROVIDERS: Admitting Provider Family Medicine; Emergency Provider Emergency Medicine; Visit Provider Family Medicine
DX: K57.32 Diverticulitis of large intestine without perforation or abscess without bleeding (principal); K21.9 Gastro-esophageal reflux disease without esophagitis; F17.210 Nicotine dependence, cigarettes, uncomplicated
CPT/HCPCS: 36415; 74177; 80048; 81001; 83605; 85025; 96361; 96365; 96366; 96367; 96375; 96376; 97802; 99221; 99284; 99406; J7030; J7050; Q9967; A4216; G0378; J2405

== ENCOUNTER 2023-10-01 12:02 | Emergency (ER) | payer MEDICAID, SELFPAY ==
[2023-10-01 12:03] VITALS: BP 117/75; PULSE 74; RESP 16; TEMP 36.9; O2SAT 100; BMI 17.8
[2023-10-01 13:15] LABS: Absolute Neutrophil Count 6.9 X10^3/uL (2.0-7.7); Basophil# 0.06 X10^3/uL; Basophil% 0.6 % (0-1); Eosinophil# 0.21 X10^3/uL; Eosinophils% 2.1 % (0-5); Hematocrit 43.6 % (40-54); Hemoglobin 14.3 g/dL (13.0-16.5); Lymphocyte % 18.4 % (19-41); Mean Corp Hgb Conc 32.8 g/dL (32-36); Mean Corpuscular Hgb 30.7 pg (27.0-32.0); Mean Corpuscular Volume 93.6 fL (80-94); Mean Platelet Vol. 9.5 fl (6.2-12.0); Monocyte# 0.76 X10^3/uL; Monocyte% 7.8 % (0-10); NRBC Flagged by Analyzer 0 % (0-5); Neutrophil # 6.88 X10^3/uL (2.7-7.7); Neutrophil % 70.4 % (47-70); Platelet Count 277 K/mm3 (150-450); RBC Distribution Width CV 14.7 % (11.6-14.6); RBC Distribution Width SD 50.5 fl (35.1-43.9); Red Blood Count 4.66 M/mm3 (4.6-6.2); White Blood Count 9.8 K/mm3 (4.4-11.0)
[2023-10-01 13:35] LABS: ALB/GLOB Ratio 0.9 RATIO (0.9-2.4); AST(SGOT) 11 U/L (15-37); Alanine Aminotransfer ALT/SGPT 19 U/L (16-61); Albumin, Serum 3.5 g/dL (3.2-5.0); Alkaline Phosphatase 78 U/L (45-117); Anion Gap 2 (5-15); BUN 14 mg/dL (7-18); Calcium,Total 9.2 mg/dL (8.5-10.1); Chloride 106 mmol/L (98-107); Creatinine, Serum 0.93 mg/dL (0.70-1.30); EST Glomerular Filtration Rate 89 mL/min (>60); Est Glom Filt Rate - Afr Amer 108 mL/min (>60); Estimated Creatinine Clearance 72.46 ml/min; Globulin 3.8 g/dL (2.2-4.2); Glucose 95 mg/dL (74-106); Potassium 4.5 mmol/L (3.5-5.1); Protein, Total 7.3 g/dL (6.4-8.2); Sodium Level 137 mmol/L (136-145)
[2023-10-01 13:37] LABS: Lipase 35 U/L (13-75)
--- NOTE | 2023-10-01 13:56 | CT_ITS ---
STUDY: CT ABDOMEN AND PELVIS WITH CONTRAST REASON FOR EXAM: Male, 52 years old. llq abdominal pain. History of recent diverticulitis. RADIATION DOSAGE (If Supplied By Facility): CTDIvol = ( 12.88 ) mGy, DLP = ( 287.77 ) mGycm TECHNIQUE: Transaxial images were obtained from the dome of the diaphragm to the symphysis pubis without oral contrast. IV 100mL Isovue-300 was administered. Sagittal and coronal images were reconstructed. Individualized dose optimization techniques were used for this CT. COMPARISON: Comparison is made with prior study dated September 25, 2023. FINDINGS: The visualized lung bases are unremarkable. The visualized portions of the heart are within normal limits. Stable scattered small hepatic cysts. Normal gallbladder and extrahepatic biliary system. Normal spleen. Normal pancreas. Normal bilateral adrenal glands. Normal right kidney. Normal left kidney. Normal visualized stomach. Normal small intestine. There is evidence of sigmoid diverticulosis. Mild degree of mural thickening of the sigmoid colon with mild increased markings in the surrounding peritoneal fat suggestive of a mild residual diverticulitis. This has improved as compared to prior study. No evidence of abscess or abnormal fluid collection. The appendix is visualized and appears normal. There is scattered atherosclerotic calcification of the abdominal aorta, without a demonstrated aneurysm. Normal inferior vena cava. Normal retroperitoneum. Mild degree of diffuse bladder wall thickening although the bladder is not completely distended. Central prostatic calcification. Normal abdominal wall. Normal osseous structures. CT/Abdomen/Pelvis W IV Cont ONLY IMPRESSION: Residual mucosal thickening of the sigmoid colon at the site of the multiple sigmoid diverticula suggestive of a mild residual diverticulitis. There has been improvement. Mild degree of diffuse bladder wall thickening although the bladder is not completely distended. Stable scattered small hepatic cysts. Electronically Signed: Azam James MD at 14:26 EDT ,
[2023-10-01 14:02] VITALS: BP 117/78; PULSE 63; RESP 14; O2SAT 99
[2023-10-01 14:09] LABS: Bacteria 0 SEEN /hpf (None Seen); Mucous, Urine 0 SEEN /hpf (<or=2+); Squamous Epithelial Cells - UA 0 SEEN /hpf (0-5); White Blood Cells 0 SEEN /hpf (0-5)
[2023-10-01 14:11] LABS: Color, Urine Yellow (Yellow); Glucose, Dipstick Normal (Normal); Ketone-Dipstick Negative (Negative); Leukocyte Esterase-Dipstick Negative /ul (Negative); Nitrite-Dipstick Negative (Negative); Occult Blood-Urine Negative /ul (Negative); Protein-Dipstick Negative (Negative); Urine Bilirubin Dipstick Negative (Negative); Urine Clarity Clear (Clear); Urine Urobilinogen Normal (Normal)
--- NOTE | 2023-10-01 14:16 | ED.VIS.GI ---
HPI HPI - GI History of Present Illness Chief Complaint: Abd Pain Narrative Narrative: Patient presenting with abdominal pain. Patiently recently admitted to the hospital for diverticulitis versus colitis. He had a leukocytosis of over 16 and was admitted on Zosyn. He was discharged home the next day. He states that as long as he was able to tolerate a liquid diet he would be able to be discharged. Patient admits that he did not want to stay in the hospital. He states that morphine did not help but he did not like the way it made him feel. He states he wanted to get out so he threw his liquid diet into the sink and had tolerated it. He has had this pain on and off for years. He states he had even had it in his childhood. He was always told as a child it was bowel gas. Patient had similar pain in 2015 when he was admitted for diverticulitis. Patient states he followed up with his PCP after being in pain all weekend and she sent him back to the emergency room to be admitted to the hospital. Patient denies any fevers, chills. He has been taking magnesium citrate and other medicines to help bowel movements. He states that he does have a referral to see Dr. Vitale but it is in November. No previous colonoscopy [facility] Medical History Wears glasses Arthritis Restless legs Back pain Injury of back Injury of head and neck History of ulceration History of diverticulitis Smoker Asthma History of stress test History of irregular heartbeat Smoking addiction Marijuana use History of colon polyps GERD (gastroesophageal reflux disease) Abdominal pain Weight loss Early satiety Back pain Home Medications ?Medication ?Instructions ?Recorded ?Last Taken ?Type amoxicillin 875 mg-potassium 1 tab PO BID #14 tabs 09/26/23 Unknown Rx clavulanate 125 mg tablet famotidine 20 mg tablet 20 mg PO BID 30 days #60 tabs 09/26/23 Unknown Rx amoxicillin 875 mg-potassium 1 tab PO BID #14 tabs 10/01/23 Unknown Rx clavulanate 125 mg tablet Allergy/AdvReac Type Severity Reaction Status Date / Time No Known Allergies Allergy Verified 10/01/23 12:05 Family History Father Heart disease Mother Cancer lung cancer Grandmother Breast cancer Grandfather Heart disease Surgical History Hx of surgical procedure History of lung surgery History of shoulder surgery History of surgery on lower extremity H/O hand surgery Social History Smoking Status: Current every day smoker tobacco type: cigarettes alcohol intake: never substance use type: marijuana ROS ROS ED Constitutional Constitutional ED: Denies chills, fever(s) or sweats Eyes Eyes: Denies blurry vision or change in vision ENT ENT ED: Denies ear pain or sore throat Cardiovascular Cardiovascular: Denies chest pain, palpitations or racing heartbeat Respiratory/Chest Respiratory/Chest: Denies cough, dyspnea or sputum Gastrointestinal Gastrointestinal: Reports abdominal pain, constipation and diarrhea; Denies nausea or vomiting Genitourinary Genitourinary ED: Denies dysuria, hematuria or urinary frequency Musculoskeletal Musculoskeletal: Denies arthralgias, myalgias or neck pain Integumentary Denies abscess, Abrasions or rash Neurologic Neurologic: Denies headache(s), paresthesias or weakness Psychiatric Psychiatric: Denies anxiety, depression, suicidal ideation or suicidal thoughts Endocrine Endocrinology: Denies polydipsia or polyuria EXAM Physical Exam Const Vital Signs: 10/01/23 12:03 10/01/23 14:02 Temperature 98.4 F Temperature Source Temporal Pulse Rate 74 63 Respiratory Rate 16 14 Blood Pressure 117/75 117/78 Blood Pressure Mean 89 91 Pulse Ox 100 99 Oxygen Delivery Method Room Air Room Air Positive well nourished General Appearance ED: Negative for pallor HEENT Reports moist mucous membranes normocephalic and atraumatic Eyes PERRL and EOMs intact bilaterally Resp normal respiratory effort and clear to auscultation bilaterally Auscultation: Negative for rales, rhonchi or wheezes Cardio regular rate and regular rhythm GI non-distended and no masses Palpation: tender LLQ and suprapubic Back/Spine no CVA tenderness Neuro CN's II-XII intact bilaterally Sensorium / Orientation: alert Motor Exam: strength 5/5 throughout Psych mental status grossly normal Skin General Skin Exam: Negative for jaundice or pallor MDM MDM MDM Narrative Medical decision making narrative: Patient presenting with left lower quadrant abdominal pain. Patient presenting with right flank pain. Differential includes colitis, diverticulitis, gastritis, pancreatitis, constipation, UTI, pyelonephritis, renal calculi, ureteral calculi, bowel obstruction, malignancy, dehydration, electrolyte abnormalities. patient declines analgesia at this time as he does not believe morphine makes him feel. CBC will be obtained to assess white blood cell count, hemoglobin, platelets. CMP to assess renal function, electrolytes, liver function, glucose. Lipase to assess for pancreatitis. Urinalysis to assess for UTI. CBC shows normal white blood cell count at 9.8. Hemoglobin 14.3. Platelets are normal at 277. Renal function electrolytes within normal limits. Lipase 35. Urinalysis negative for infection. CT of the abdomen pelvis with IV contrast was obtained and shows some residual possible diverticulitis. There is mild bladder wall thickening however the urinalysis is negative. Discussed the case with Dr. Dow who reviewed the CT scan and the lab work which is all normal except for the thickening of the sigmoid which is improved. Patient does not want to stay in the hospital. She recommended extending his Augmentin another week and she can follow-up with them as an outpatient. Patient amenable to this. Return precautions discussed. Impression: 1. Diverticulitis Lab Data Attestation: I reviewed the patient's lab results. Labs: Laboratory Results - last 24 hr 10/01/23 10/01/23 13:00 14:05 WBC 9.8 RBC 4.66 Hgb 14.3 Hct 43.6 MCV 93.6 MCH 30.7 MCHC 32.8 RDW Std Deviation 50.5 H RDW Coeff of Omar 14.7 H Plt Count 277 MPV 9.5 Immature Gran % (Auto) 0.700 Neut % (Auto) 70.4 H Lymph % (Auto) 18.4 L [place] % (Auto) 7.8 Eos % (Auto) 2.1 Baso % (Auto) 0.6 Absolute Neuts (auto) 6.9 Absolute Lymphs (auto) 1.80 Nucleated RBC % 0 Sodium 137 Potassium 4.5 Chloride 106 Carbon Dioxide 29.0 Anion Gap 2 L BUN 14 Creatinine 0.93 Estim Creat Clear Calc 72.46 Est GFR (MDRD) Af Amer 108 Est GFR (MDRD) Non-Af 89 BUN/Creatinine Ratio 15.0 Glucose 95 Calcium 9.2 Total Bilirubin 0.30 AST 11 L ALT 19 Alkaline Phosphatase 78 Total Protein 7.3 Albumin 3.5 Globulin 3.8 Albumin/Globulin Ratio 0.9 Lipase 35 Urine Color Yellow Urine Clarity Clear Urine pH 5.0 Ur Specific [place] 1.020 Urine Protein Negative Urine Glucose (UA) Normal Urine Ketones Negative Urine Occult Blood Negative Urine Nitrite Negative Urine Bilirubin Negative Urine Urobilinogen Normal Ur Leukocyte Esterase Negative Urine RBC 0-5 SEEN Urine WBC 0 SEEN Ur Squamous Epith Cells 0 SEEN Urine Bacteria 0 SEEN Urine Mucus 0 SEEN Radiography Diagnostic Testing: Clinical Impression(s) from Imaging Studies Abdomen/Pelvis CT 10/01/23 13:56 IMPRESSION: Residual mucosal thickening of the sigmoid colon at the site of the multiple sigmoid diverticula suggestive of a mild residual diverticulitis. There has been improvement. Mild degree of diffuse bladder wall thickening although the bladder is not completely distended. Stable scattered small hepatic cysts. Electronically Signed: Azam James MD at 14:26 EDT , Discharge Plan Triage Chief Complaint: Abd Pain ED Provider: Roderick Gore Dx/Rx/DC Orders Clinical Impression: Diverticulitis of sigmoid colon Instructions: ED Diverticulitis Prescriptions: New amoxicillin-pot clavulanate 875-125 mg tablet 1 tab PO BID Qty: 14 0RF No Action famotidine 20 mg Tablet 20 mg PO BID 30 Days Qty: 60 0RF amoxicillin-pot clavulanate 875-125 mg tablet 1 tab PO BID Qty: 14 0RF Primary Care Provider: [facility] Meena Cadena Referrals: Ana Dow MD [Med Staff - Active Staff] - [facility] - Print Language: Mauritian Disposition Disposition: Home, Self Care
[2023-10-01 14:21] LABS: Red Blood Cells-Urine 0-5 SEEN /hpf (0-5)
[2023-10-01 15:00] VITALS: BP 113/73; PULSE 80; RESP 16; TEMP 36.7; O2SAT 97
== END 2023-10-01 15:05 | disposition home or self-care (01) ==
PROVIDERS: Emergency Provider Student in an Organized Health Care Education/Training Program; Visit Provider Student in an Organized Health Care Education/Training Program
DX: K57.32 Diverticulitis of large intestine without perforation or abscess without bleeding (principal); F12.90 Cannabis use, unspecified, uncomplicated; J45.909 Unspecified asthma, uncomplicated; F17.210 Nicotine dependence, cigarettes, uncomplicated
CPT/HCPCS: 74177; 80053; 81001; 83690; 85025; 99283; Q9967; A4216

== ENCOUNTER → 2023-11-08 | Outpatient (CLI) | payer MEDICAID, SELFPAY ==
[2023-11-08 10:13] LABS: Erythrocyte Sedimentation Rate 4 mm/hr (0-20)
[2023-11-08 10:31] LABS: HIV - WCH Non-Reactive (Nonreactive); Vitamin B12 742 pg/mL (211-911)
[2023-11-08 10:53] LABS: CRP 3.78 mg/L (0.0-3.0); Ferritin 197 ng/mL (26-388); LDH 161 U/L (87-241); Rheumatoid Factor < 10.0 IU/mL (<15); Thyroid Stim Hormone (TSH) 0.94 uIU/mL (0.358-3.74)
[2023-11-11 14:09] LABS: Anti-Centromere B Ab <0.2 AI (0.0-0.9); Anti-Chromatin <0.2 AI (0.0-0.9); Anti-Jo <0.2 AI (0.0-0.9); Anti-Scleroderma-70 AB <0.2 AI (0.0-0.9); Anti-dsDNA Ab <1 IU/mL (0-9); RNP Ab <0.2 AI (0.0-0.9); SJOGREN'S Anti-SS-A test < 0.2 AI (0.0-0.9); SJOGREN'S Anti-SS-B test < 0.2 AI (0.0-0.9); Smith Ab <0.2 AI (0.0-0.9); Vitamin D 1,25-Dihydroxy 33.2 pg/mL (24.8-81.5)
[2023-11-14 09:08] LABS: ACCA 29 units (0-90); ALCA 7 units (0-60); AMCA 30 units (0-100); Albumin 4.1 g/dL (2.9-4.4); Aldolase 6.7 U/L (3.3-10.3); Alpha-1-Globulins 0.3 g/dL (0.0-0.4); Alpha-2-Globulins 0.9 g/dL (0.4-1.0); CCP IgG Antibodies 7 units (0-19); Cytoplasmic Ab (C-ANCA) <1:20 titer (Neg:<1:20); Endomysial Antibody IgA Negative (Negative); Gamma Globulin 0.7 g/dL (0.4-1.8); Immunoglobulin A 158 mg/dL (90-386); Immunoglobulin E 17 IU/mL (6-495); Immunoglobulin G 744 mg/dL (603-1613); Immunoglobulin M 150 mg/dL (20-172); Myoglobin, Serum 26 ng/mL (28-72); Perinuclear Ab (P-ANCA) <1:20 titer (Neg:<1:20); QNTFERON TB Mitogen Value > 10.00 IU/mL (.); QNTFERON TB Nil Value 0.01 IU/mL (.); QNTFERON TB1+ Ag Value 0 IU/mL (.); QNTFERON TB2+ Ag Value 0.02 IU/mL (.); QNTIFERON TB Positive Criteria Negative (Negative); gASCA 10 units (0-50); t-Transglutaminase IgA <2 U/mL (0-3)
== END | disposition home or self-care (01) ==
LOC: LAB 08:19
PROVIDERS: Referring Provider Internal Medicine Gastroenterology; Visit Provider Internal Medicine Gastroenterology
DX: R10.12 Left upper quadrant pain (principal); R63.4 Abnormal weight loss; D72.829 Elevated white blood cell count, unspecified; Z87.19 Personal history of other diseases of the digestive system
CPT/HCPCS: 36415; 82085; 82607; 82652; 82728; 82784; 82785; 83516; 83615; 83874; 84165; 84443; 85652; 86036; 86140; 86200; 86225; 86235; 86255; 86256; 86334; 86431; 86480; 86671; 86703

== ENCOUNTER → 2023-11-09 | Outpatient (CLI) | payer MEDICAID, SELFPAY ==
[2023-11-12 15:09] LABS: Pancreatic Elastase, Fecal > 800 (>200)
[2023-11-19 20:08] LABS: Calprotectin, Stool 38 ug/g (0-120); Fats, Neutral Normal (.); Fats, Total Normal (.)
== END | disposition home or self-care (01) ==
LOC: LABSPEC 08:50
PROVIDERS: Referring Provider Internal Medicine Gastroenterology; Visit Provider Internal Medicine Gastroenterology
DX: K58.9 Irritable bowel syndrome, unspecified (principal); R10.12 Left upper quadrant pain; R63.4 Abnormal weight loss; D72.829 Elevated white blood cell count, unspecified; Z87.19 Personal history of other diseases of the digestive system
CPT/HCPCS: 82653; 82705; 83630; 83993; 87177; 87209; 87329; 87506

== ENCOUNTER → 2023-11-20 | Outpatient (CLI) | payer MEDICAID, SELFPAY ==
[2023-11-20 15:32] LABS: International Normalized Ratio 1.1; Prothrombin Time (Protime)PT. 13.9 SECONDS (11.7-14.9)
[2023-11-20 15:33] LABS: Partial Thromboplast Time 33.5 Seconds (24.1-36.2)
[2023-11-20 15:40] LABS: Magnesium 2.1 mg/dL (1.6-2.6)
[2023-11-25 17:07] LABS: Myoglobin, Urine < 2 ng/mL (0-13)
== END | disposition home or self-care (01) ==
LOC: LAB 14:24
PROVIDERS: Anesthesiology
DX: Z01.818 Encounter for other preprocedural examination (principal); R10.12 Left upper quadrant pain
CPT/HCPCS: 36415; 83735; 83874; 85610; 85730

== ENCOUNTER 2024-12-15 11:33 | Emergency (ER) | payer MEDICAID, SELFPAY ==
[2024-12-15 11:34] VITALS: BP 114/78; PULSE 63; RESP 18; TEMP 37; O2SAT 95; BMI 17.6
[2024-12-15 13:54] VITALS: BP 114/90; PULSE 88; RESP 18; O2SAT 100
--- NOTE | 2024-12-15 14:24 | ED.VIS.BACK ---
HPI History of Present Illness Chief Complaint: Back Informant: patient Narrative Narrative: Patient is a 54-year-old male with history of tobacco use, diverticulitis, back pain and arthritis presenting with right lower back pain. States he felt fine when he went to bed on evening but when he woke up on Saturday morning (4 days ago) he noted pain in his right lower back. He points to his right SI joint is where the pain is. States he has pain in his lower back when he even turns his head to look to the left when driving or with movement of his right arm or leg. States he has increased pain when he leans to the left but not when he leans to the right. He denies any injury or trauma. States he does get some pain rating down his right anterior/medial thigh but he does not recall if it goes past his knee. States it is worse with movements and sometimes the pain is so bad that he feels that he is going to drop to the floor. He does have some pain that goes into his right groin and abdomen. He does report some urinary frequency and notes his bowel movements have been less frequent recently. Today he did have vomiting secondary to pain. He tried to take Percocet at home with no relief of his pain and came in for further evaluation. Denies any fever, incontinence or saddle anesthesia. Does note he has pain going down his entire left shoulder to the tips of the fingers intermittently for the past 3 months. Denies any acute change in that today. [facility] Medical History Alcohol use Bladder disease Rheumatoid arthritis Easy bruising Generalized headaches Syncope History of diverticulitis Asthma Wears glasses Arthritis Restless legs Back pain Injury of back Injury of head and neck History of ulceration History of diverticulitis Smoker Asthma History of stress test History of irregular heartbeat Marijuana use History of colon polyps GERD (gastroesophageal reflux disease) Abdominal pain Weight loss Early satiety Back pain Home Medications ?Medication ?Instructions ?Recorded ?Last Taken ?Type famotidine 20 mg tablet 20 mg PO BID GERD 30 days #60 tabs 09/26/23 Unknown Rx dicyclomine 20 mg tablet 20 mg PO TID #90 TABLETS 11/26/24 Unknown Rx meloxicam 15 mg tablet 15 mg PO DAILY #30 tabs 12/15/24 Unknown Rx ondansetron 4 mg disintegrating 4 mg PO Q8H PRN PRN Nausea #10 tabs 12/15/24 Unknown Rx tablet oxycodone-acetaminophen 5 mg-325 1 tab PO Q6H 3 days #12 tabs 12/15/24 Unknown Rx mg tablet (Percocet) prednisone 20 mg tablet 40 mg (2 x 20 mg) PO DAILY #10 tabs 12/15/24 Unknown Rx Allergy/AdvReac Type Severity Reaction Status Date / Time No Known Allergies Allergy Verified 12/15/24 11:36 Family History Father Heart disease Mother Cancer lung cancer Grandmother Breast cancer Grandfather Heart disease Surgical History Hx of colonoscopy Hx of surgical procedure History of lung surgery History of shoulder surgery H/O hand surgery Social History Smoking Status: Current every day smoker tobacco type: cigarettes alcohol intake: never substance use type: marijuana ROS ROS ED Constitutional Constitutional ED: Denies chills or fever(s) Cardiovascular Cardiovascular: Denies chest pain Respiratory/Chest Respiratory/Chest: Denies dyspnea Gastrointestinal Gastrointestinal: Reports nausea and vomiting; Denies abdominal pain, constipation, diarrhea or melena Genitourinary Genitourinary ED: Reports urinary frequency and other Details: Reports chronic urinary frequency ; Denies dysuria Musculoskeletal Musculoskeletal: Reports back pain Integumentary Denies rash Hematologic/Lymphatic Hematologic/Lymphatic: Denies easy bleeding or easy bruising EXAM Physical Exam Const Vital Signs: 12/15/24 11:34 12/15/24 13:54 12/15/24 14:47 Temperature 98.6 F 98.7 F Temperature Source Oral Oral Pulse Rate 63 88 53 L Respiratory Rate 18 18 14 Blood Pressure 114/78 114/90 H 107/72 Blood Pressure Mean 90 98 83 Pulse Ox 95 100 100 Oxygen Delivery Method Room Air Room Air Room Air Positive well nourished and well developed General Appearance ED: well developed HEENT Reports moist mucous membranes Eyes PERRL Neck supple Resp normal respiratory effort and clear to auscultation bilaterally Cardio regular rate, regular rhythm and no murmurs Cardio Narrative: 2+ radial and DP pulses present GI normal to inspection, nondistended, normoactive bowel sounds, soft to palpation and non-tender GI Narrative: No pulsatile mass appreciated Palpation: Negative for tender or guarding Back/Spine normal to inspection Back/Spine Narrative: Some mild tenderness at approximately level of L5. No step-off sign. Pain at the right SI joint. Increased pain with straight leg test on the ipsilateral side (right). No change in pain with contralateral straight leg test. General Back: Negative for CVA tenderness Lumbar Spine / Lower Back: ROM limited Extremity normal to inspection Extremity Narrative: No bony tenderness. No pain with passive range of motion of the hip. No pain over the greater trochanter on the right. No peripheral edema appreciated. General Extremety ED: Negative for edema or tenderness General Extremity: Negative for edema Neuro oriented x3 and no sensory deficits noted Sensorium / Orientation: alert Motor Exam: strength 5/5 throughout Psych mental status grossly normal Skin no rashes or lesions noted and no wounds MDM MDM MDM Narrative Medical decision making narrative: Patient evaluated for worsening right lower back pain. Nontraumatic. Does have a history of arthritis and prior to this has been on meloxicam in the past. Differential includes SI joint dysfunction, degenerative disc disease, compression fracture, occult pelvic fracture. Denies any acute abdominal symptoms or change in bowel movements, fever or chills and lower suspicion for referred visceral pain. He has normal if not mildly low blood pressure and a normal neurovascular exam and low suspicion for acute aortic/vascular pathology causing his pain. He does have bony tenderness of x-ray of the lumbar spine as well as pelvic x-ray is obtained. He has some arthritic change with a mild degree of disc space narrowing at L 5-S1 level. This is at the level of his pain. Patient was given a dose of IM morphine and oral Zofran for symptom control. Repeat evaluation he states he is feeling better. Will be discharged home with a burst of steroids, refill of meloxicam to resume and a short course of Percocet for pain control. Will be given referral for spinal surgery. Given return precautions. Patient is agreeable this plan of care. Patient discharged home in stable and improved condition. Radiography Diagnostic Testing: Clinical Impression(s) from Imaging Studies Lumbar Spine X-Ray 12/15/24 14:55 IMPRESSION: Mild degree of disc space narrowing at L5-S1 level. Reading Location: [facility] Pelvis X-Ray 12/15/24 14:55 IMPRESSION: NEGATIVE PELVIS Reading Location: [id number] Discharge Plan Triage Chief Complaint: Back ED Provider: Charla Ye Dx/Rx/DC Orders Clinical Impression: Acute lumbar back pain, Sacroiliac joint pain Instructions: Understanding Sacroiliac Strain, ED Back Pain (Acute or Chronic) Prescriptions: New prednisone 20 mg tablet 40 mg PO DAILY Qty: 10 0RF meloxicam 15 mg tablet 15 mg PO DAILY Qty: 30 0RF oxycodone-acetaminophen [Percocet] 5-325 mg tablet 1 tab PO Q6H 3 Days Qty: 12 0RF ondansetron 4 mg tablet,disintegrating 4 mg PO Q8H PRN PRN (Reason: Nausea) Qty: 10 0RF No Action famotidine 20 mg Tablet 20 mg PO BID 30 Days Qty: 60 0RF dicyclomine 20 mg tablet 20 mg PO TID Qty: 90 2RF Primary Care Provider: Florinda Cotto Referrals: Vikas Magallanes MD [Med Staff - Active Staff] - Florinda Cotto, [employer] [Primary Care Provider] - Print Language: Nicaraguan Disposition Disposition: Home, Self Care
[2024-12-15 14:47] VITALS: BP 107/72; PULSE 53; RESP 14; TEMP 37.1; O2SAT 100
--- NOTE | 2024-12-15 14:55 | RAD_ITS ---
PROCEDURE: PELVIS 1 OR 2 VIEWS 12/15/2024 REASON FOR EXAM: INJURY/PAIN TECHNIQUE: Procedure Code: RADPEL Modality: DX Procedure: PELVIS 1 OR 2 VIEWS COMPARISON: None FINDINGS: Hardware: None Bones: No fracture Joints: Normal alignment at the hips and sacroiliac joints. soft tissues: Moderate amount of fecal material seen in the colon. Other: RAD/Pelvis 1 or 2 Views IMPRESSION: NEGATIVE PELVIS Reading Location: [id number]
--- NOTE | 2024-12-15 14:55 | RAD_ITS ---
PROCEDURE: LUMBAR SPINE 2 OR 3 VIEWS 12/15/2024 REASON FOR EXAM: INJURY/PAIN TECHNIQUE: Procedure Code: RADSPLL Modality: DX Procedure: LUMBAR SPINE 2 OR 3 VIEWS COMPARISON: Prior study dated March 14, 2023. FINDINGS: Vertebrae: Unremarkable. Discs: Mild degree of disc space narrowing at the L5-S1 level. Alignment: No scoliosis. Other: Vascular calcification. RAD/Lumbar Spine 2 or 3 Views IMPRESSION: Mild degree of disc space narrowing at L5-S1 level. Reading Location: [id number]
[2024-12-15 16:00] VITALS: BP 105/68; PULSE 88; RESP 15; TEMP 36.6; O2SAT 97
== END 2024-12-15 16:07 | disposition home or self-care (01) ==
PROVIDERS: Emergency Provider Emergency Medicine; PCP Nurse Practitioner Family; Visit Provider Emergency Medicine
DX: M54.50 Low back pain, unspecified (principal); M53.3 Sacrococcygeal disorders, not elsewhere classified; R35.0 Frequency of micturition; K21.9 Gastro-esophageal reflux disease without esophagitis; J45.909 Unspecified asthma, uncomplicated; M48.07 Spinal stenosis, lumbosacral region; F17.210 Nicotine dependence, cigarettes, uncomplicated
CPT/HCPCS: 72100; 72170; 96372; 99282

== ENCOUNTER → 2025-01-06 | Outpatient (CLI) | payer MEDICAID, SELFPAY ==
--- NOTE | 2025-01-06 07:07 | MRI_ITS ---
PROCEDURE: SPINE CERVICAL (ROUTINE) 01/06/2025 REASON FOR EXAM: LEFT RADICULOPATHY, WORSENING DEXTERITY TECHNIQUE: Procedure Code: MRISPC Modality: MR Procedure: SPINE CERVICAL (ROUTINE) Multiplanar and multisequence images were obtained without IV contrast administration. FINDINGS: Vertebrae: Cervical vertebral body heights are preserved. Bone marrow signal is unremarkable. Alignment: Straightening. No spondylolisthesis. Spinal Cord: Cervical spinal cord is of normal size and signal intensities. Structures at the foramen magnum are unremarkable. C2-3: Unremarkable C3-4: Minimal left facet hypertrophy. C4-5: Unremarkable C5-6: Minimal loss of disc height. Mild, diffuse disc bulge is present that is asymmetric to the right sub foraminal region. This partially effaces the anterior thecal sac, but there is CSF around the entire cord. Borderline central stenosis to 10 mm AP. Borderline exit foraminal narrowing on the right. Correlate with right C6 radiculopathy. C6-7: Mild loss of disc height. Mild, diffuse disc protrusion is present. Slightly asymmetric to the left sub foraminal zone and towards the foramen. Central canal is borderline stenotic but there is CSF around the cord. Left exit foraminal narrowing. Correlate with left C7 radiculopathy. C7-T1: Unremarkable MRI/Spine Cervical (Routine) IMPRESSION: 1. Straightening of the normal cervical lordosis. Consider spasm. 2. Degenerative disc disease C5/6 and C6/7. See above descriptions. Reading Location: [id number]
== END | disposition home or self-care (01) ==
LOC: OPMRI 07:05
PROVIDERS: PCP Nurse Practitioner Family; Referring Provider Student in an Organized Health Care Education/Training Program; Visit Provider Student in an Organized Health Care Education/Training Program
DX: G95.9 Disease of spinal cord, unspecified (principal); M54.12 Radiculopathy, cervical region
CPT/HCPCS: 72141